=== PATIENT | male | born 1970 | race Caucasian/White ===

== ENCOUNTER 2017-10-18 05:15 | Inpatient (IN) | payer BC ==
[2017-10-18] MEDS ORDERED: Acetaminophen 500 MG Tab PO ONE ×2 (05:57→08:00)
[2017-10-18] MEDS ORDERED: Gabapentin 300 MG Cap PO ONE ×2 (05:57→08:00)
[2017-10-18] MEDS ORDERED: Celecoxib 200 MG Cap PO ONE ×2 (05:57→08:00)
[2017-10-18] MEDS ORDERED: Dextrose 5%-Lactated Ringers 1,000 ML IV SCH ×2 (05:58→08:15)
[2017-10-18] MEDS: Scopolamine 1.5 MG Transdermal Patch TOP ONE ×2 (06:21→13:16)
[2017-10-18] MEDS ORDERED: Ondansetron 4 MG/2 ML SDV ONE (07:08)
[2017-10-18] MEDS ORDERED: Succinylcholine 200 MG/10 ML MDV ONE (07:08)
[2017-10-18] MEDS ORDERED: Neostigmine Methylsulfate 1 MG/ML 5 ML Syringe ONE (07:08)
[2017-10-18] MEDS ORDERED: Dexamethasone 4 MG/ML SDV ONE (07:08)
[2017-10-18] MEDS ORDERED: Rocuronium 50 MG/5 ML Vial ONE (07:08)
[2017-10-18] MEDS ORDERED: Glycopyrrolate 0.2 MG/ML 5 ML MDV ONE (07:08)
[2017-10-18] MEDS ORDERED: Propofol 200 MG/20 ML SDV ONE (07:08)
[2017-10-18] MEDS: cefOXitin 2 GM in Sodium Chloride 0.9% 50 ML IV ONE ×2 (07:14→11:59)
[2017-10-18] MEDS ORDERED: Lactated Ringers 1,000 ML ONE (07:14)
[2017-10-18] MEDS ORDERED: Lidocaine 2% 100 MG/5 ML Syringe IVPUSH ONE (07:30)
[2017-10-18] MEDS ORDERED: Ropivacaine 60 ML, Dexamethasone 8 MG, EPINEPHrine 0.4 MG, Sodium Chloride 0.9% 17.6 ML NERVRT SCH ×4 (07:30)
[2017-10-18] MEDS ORDERED: Ketamine 500 MG/5 ML MDV IV SCH (07:30)
[2017-10-18] MEDS ORDERED: fentaNYL 250 MCG/5 ML SDV ONE (07:55)
[2017-10-18] MEDS: cefOXitin 2 GM Vial ONE ×2 (08:12→08:51)
[2017-10-18] MEDS ORDERED: hydrOXYzine HCl 100 MG/2 ML SDV IM ONE ×2 (09:19→13:47)
[2017-10-18] MEDS ORDERED: fentaNYL 100 MCG/2 ML SDV IVPUSH ONE (09:23)
[2017-10-18] MEDS ORDERED: Labetalol 20 MG/4 ML Syringe IVPUSH ONE (10:03)
[2017-10-18] MEDS ORDERED: hydrALAZINE 20 MG/ML SDV IVPUSH ONE (10:39)
[2017-10-18] MEDS: Lidocaine 0.4%/D5W 2 GM/500 ML BAG IV SCH (11:30)
[2017-10-18] MEDS ORDERED: Ondansetron 4 MG/2 ML SDV IVPUSH PRN (12:00)
[2017-10-18] MEDS ORDERED: Labetalol 20 MG/4 ML Syringe IVPUSH PRN (12:00)
[2017-10-18] MEDS ORDERED: 50% Dextrose in Water 50 ML Syringe IVPUSH PRN (12:00)
[2017-10-18] MEDS ORDERED: hydrOXYzine HCl 100 MG/2 ML SDV IM PRN (12:00)
[2017-10-18] MEDS ORDERED: Glucagon,Human Recombinant 1 MG Vial IM PRN (12:00)
[2017-10-18] MEDS ORDERED: diphenhydrAMINE 50 MG/ML SDV IVPUSH PRN (12:00)
[2017-10-18] MEDS ORDERED: Pantoprazole 40 MG Vial IVPUSH SCH (12:00)
[2017-10-18] MEDS: Acetaminophen Soln 650 MG/20.3 ML UD Cup PO SCH ×2 (12:03→17:59)
[2017-10-18] MEDS: Dextrose 5%-Lactated Ringers 1,000 ML IV SCH (13:05)
[2017-10-18] MEDS: cefOXitin 2 GM in Sodium Chloride 0.9% 50 ML IV SCH ×2 (13:32→18:07)
[2017-10-18] MEDS ORDERED: Nicotine 14 MG/24 Hr Patch TRDERM SCH (14:00)
[2017-10-18] MEDS: Gabapentin 250 MG/5 ML Solution ML 470 ML Bottle PO SCH ×2 (14:33→21:31)
[2017-10-18] MEDS ORDERED: MVI, Adult with Vitamin K 10 ML, Thiamine 100 MG, Chromium/Copper/Mang/Selen/Zn 1 ML in... IV SCH ×4 (16:00)
[2017-10-18] MEDS: Heparin Sodium 5,000 Units/ML Vial SUBCUT SCH (17:59)
[2017-10-18] MEDS: Insulin Aspart 100 Units/ML 3 ML Pen SUBCUT PRN ×2 (18:19→21:41)
[2017-10-19] MEDS: Lidocaine 0.4%/D5W 2 GM/500 ML BAG IV SCH (00:14)
[2017-10-19] MEDS: Heparin Sodium 5,000 Units/ML Vial SUBCUT SCH ×3 (00:14→16:12)
[2017-10-19] MEDS: Acetaminophen Soln 650 MG/20.3 ML UD Cup PO SCH ×3 (00:14→12:51)
[2017-10-19] MEDS: Dextrose 5%-Lactated Ringers 1,000 ML IV SCH (00:28)
[2017-10-19] MEDS: cefOXitin 2 GM in Sodium Chloride 0.9% 50 ML IV SCH ×2 (01:34→07:45)
[2017-10-19] MEDS ORDERED: Iohexol 647 MG/ML 50 ML SDV PO STA (03:27)
[2017-10-19] MEDS: Insulin Aspart 100 Units/ML 3 ML Pen SUBCUT PRN ×3 (04:24→16:26)
[2017-10-19] MEDS ORDERED: Ondansetron 4 MG Tab.DIS PO PRN (07:22)
[2017-10-19] MEDS: Lactated Ringers 1,000 ML IV SCH (07:48)
--- NOTE | 2017-10-19 08:21 | PN ---
DATE OF SERVICE: 10/19/2017 SUBJECTIVE: Zak is postop following Nacho-en-Y gastric bypass surgery. Blood sugars have been 325 and 320. He is due for his next one at 10 a.m. He has been up ambulating. Vital signs have been stable. Pain has been well managed. LABORATORIES: Labs this morning: White count was 21.6. Glucose 299. Hemoglobin A1c was 7.2. Phosphorus 2.1, magnesium 1.6, and potassium was normal at 4.5. BNP was 263. OBJECTIVE: GENERAL: Zak Ritchie is a 47-year-old male, alert and orientated. VITAL SIGNS: T, P, R 99.8, 96, 18. Blood pressure 129/81. Oral intake was 480 and urine output was 2875, PARISH put out 85 mL. HEENT: Negative. NECK: Supple. HEART: Regular rate and rhythm. LUNGS: Clear. ABDOMEN: Dressings dry and intact. PARISH drain intact. Abdominal binder is on. EXTREMITIES: Without peripheral edema. ASSESSMENT: Laparoscopic Nacho-en-Y gastric bypass surgery, liver biopsy, and small bowel resection for morbid obesity, hepatomegaly, poor mobility of small bowel secondary to fat- laden small bowel mesentery. Date of surgery is 10/18/2017, Javier Lopez MD. PLAN: 1. Step 2 gastric bypass diet without cereal. 2. Dressing off. May shower. 3. Magnesium 2 g IV q.6 hours. 4. Discontinue D5 LR. Change to lactated Ringer's 100 mL per hour. Neutra-Phos 250 mg p.o. q.i.d., Zofran 4 mg q.4 hours p.r.n. nausea, and hydrochlorothiazide 12.5 mg p.o. daily. We will wait for blood sugar results at 10 a.m. before starting any diabetic medication. He does have NovoLog to be given on a sliding scale. 5. Good pulmonary toilet. 6. We will evaluate p.r.n. 7. Communication order written for 3 med cups per hour to record at bedside. Reny Petersen PA-C /[id number]
[2017-10-19] MEDS: Gabapentin 250 MG/5 ML Solution ML 470 ML Bottle PO SCH (08:23)
[2017-10-19] MEDS: Celecoxib 200 MG Cap PO SCH (08:23)
[2017-10-19] MEDS: SCOPOLAMINE PATCH CHECK TOP SCH (08:23)
[2017-10-19] MEDS ORDERED: Hydrochlorothiazide 12.5 MG Cap PO SCH (09:00)
--- NOTE | 2017-10-19 09:40 | CR ---
UGI wo KUB CLINICAL HISTORY: Status post Nacho-en-Y gastric bypass FINDINGS: First image shows contrast in the distal esophagus gastric remanent and proximal small nakita l. There is a surgical drain in the left upper quadrant. The delayed image shows contrast in the mid small bowel. The no extravasation is identified. There is patchy atelectasis in the left lung base. Impression: Status post recent Nacho-en-Y gastric bypass with no evidence of obstruction or extravasat ion
[2017-10-19] MEDS: Phosphorus #1 250 MG Tab PO SCH ×3 (09:56→22:01)
[2017-10-19] MEDS: Magnesium Sulfate/Water 2 GM in Premix Bag 1 BAG IV SCH ×3 (10:37→22:00)
[2017-10-19] MEDS: Pantoprazole 40 MG Delayed-Release Granules 1 Packet PO SCH (12:51)
[2017-10-19] MEDS: Gabapentin 300 MG Cap PO SCH ×2 (14:02→22:01)
[2017-10-19] MEDS: MVI, Adult with Vitamin K 10 ML, Thiamine 100 MG, Chromium/Copper/Mang/Selen/Zn 1 ML in... IV SCH ×4 (15:35)
[2017-10-19] MEDS: Acetaminophen 160 MG Tab,Disintegrating PO SCH (17:52)
[2017-10-19] MEDS: Metoclopramide 10 MG/2 ML SDV IVPUSH PRN (19:34)
[2017-10-20] MEDS: Acetaminophen 160 MG Tab,Disintegrating PO SCH ×5 (00:27→23:47)
[2017-10-20] MEDS: Heparin Sodium 5,000 Units/ML Vial SUBCUT SCH ×4 (00:29→23:47)
[2017-10-20] MEDS: Lactated Ringers 1,000 ML IV SCH (01:51)
[2017-10-20] MEDS: Magnesium Sulfate/Water 2 GM in Premix Bag 1 BAG IV SCH ×4 (04:49→21:18)
[2017-10-20] MEDS: Insulin Aspart 100 Units/ML 3 ML Pen SUBCUT PRN (04:56)
[2017-10-20] MEDS: Metoclopramide 10 MG/2 ML SDV IVPUSH PRN (05:03)
[2017-10-20] MEDS: Phosphorus #1 250 MG Tab PO SCH ×4 (05:08→21:18)
[2017-10-20] MEDS ORDERED: Magnesium Hydroxide 400 MG/5 ML Susp 30 ML Cup PO PRN (07:57)
[2017-10-20] MEDS: Celecoxib 200 MG Cap PO SCH (08:10)
[2017-10-20] MEDS ORDERED: Cyanocobalamin (Vitamin B12) 1,000 MCG/ML SDV IM ONE (09:00)
[2017-10-20] MEDS ORDERED: Magnesium Hydroxide 400 MG/5 ML Susp 30 ML Cup PO ONE (09:00)
[2017-10-20] MEDS: Gabapentin 300 MG Cap PO SCH ×3 (09:34→20:21)
[2017-10-20] MEDS: SCOPOLAMINE PATCH CHECK TOP SCH (09:35)
[2017-10-20] MEDS: Pantoprazole 40 MG Delayed-Release Granules 1 Packet PO SCH (11:48)
[2017-10-20] MEDS: MVI, Adult with Vitamin K 10 ML, Thiamine 100 MG, Chromium/Copper/Mang/Selen/Zn 1 ML in... IV SCH ×4 (17:46)
[2017-10-21] MEDS: Magnesium Sulfate/Water 2 GM in Premix Bag 1 BAG IV SCH ×4 (03:46→21:33)
[2017-10-21] MEDS: Lactated Ringers 1,000 ML IV SCH (04:57)
[2017-10-21] MEDS: Acetaminophen 160 MG Tab,Disintegrating PO SCH ×4 (05:21→23:23)
[2017-10-21] MEDS: Phosphorus #1 250 MG Tab PO SCH (05:22)
[2017-10-21] MEDS ORDERED: Potassium Phosphates 15 MMOLE in Sodium Chloride 0.9% 250 ML IV ONE (09:00)
[2017-10-21] MEDS: Celecoxib 200 MG Cap PO SCH (09:03)
[2017-10-21] MEDS: Heparin Sodium 5,000 Units/ML Vial SUBCUT SCH ×3 (09:03→23:19)
[2017-10-21] MEDS: Gabapentin 300 MG Cap PO SCH ×3 (09:04→21:33)
[2017-10-21] MEDS: Metoclopramide 10 MG/2 ML SDV IVPUSH PRN (10:45)
[2017-10-21] MEDS: Potassium Phosphates 20 MMOLE in Sodium Chloride 0.9% 250 ML IV SCH ×3 (12:23→19:45)
[2017-10-21] MEDS: Pantoprazole 40 MG Delayed-Release Granules 1 Packet PO SCH (12:29)
[2017-10-21] MEDS: MVI, Adult with Vitamin K 10 ML, Thiamine 100 MG, Chromium/Copper/Mang/Selen/Zn 1 ML in... IV SCH ×4 (23:17)
[2017-10-22] MEDS: Magnesium Sulfate/Water 2 GM in Premix Bag 1 BAG IV SCH (03:03)
[2017-10-22] MEDS: Acetaminophen 160 MG Tab,Disintegrating PO SCH (05:28)
[2017-10-22] MEDS: Gabapentin 300 MG Cap PO SCH (08:15)
[2017-10-22] MEDS: Celecoxib 200 MG Cap PO SCH (08:15)
[2017-10-22] MEDS: Heparin Sodium 5,000 Units/ML Vial SUBCUT SCH (08:16)
--- NOTE | 2017-10-22 09:49 | PN ---
DATE OF SERVICE: 10/20/2017 The patient is running some temps in the 100.7 range, around 100 to 105. Otherwise, he looks fairly good. O2 saturations were a little bit low yesterday, and these were improved overnight with increased pulmonary toilet. His PARISH drains look clean. He perhaps had nausea overnight, but has now resolved. The abdominal discomfort seems to be resolving. He is beginning to pass some gas. We will need to keep him today and work on pulmonary toilet, give him some bowel stimulation. His blood sugars are coming down reasonably well, and we will not start any antidiabetic medication at this point. As long as he continues to improve, he will likely be discharged home tomorrow. Javier Lopez MD /[id number]
--- NOTE | 2017-10-22 10:22 | PN ---
DATE OF SERVICE: 10/21/2017 The patient has now been afebrile with stable vital signs. Oral intake was still a little bit marginal yesterday. I will keep him 1 more day to make sure that is established. The Neutra-Phos tablets were making him quite nauseated and uncomfortable. Given this, we will switch the phosphate over to K-Phos IV today and recheck some labs in the morning. Assuming he is able to maintain an adequate oral intake, we will have him likely be discharged home tomorrow. Javier Lopez MD /[id number]
--- NOTE | 2017-10-23 05:01 | DISCH ---
ADMISSION DIAGNOSES: Morbid obesity, BMI 37, elevated fasting glucose, essential hypertension, obstructive sleep apnea, gastroesophageal reflux disease, anxiety, dysthymia, vitamin D deficiency. DISCHARGE DIAGNOSES: 1. Laparoscopic Nacho-en-Y gastric bypass surgery, liver biopsy, and small bowel resection for morbid obesity, hepatomegaly, poor mobility of small bowel secondary to fat laden small bowel mesentery. Date of surgery 10/18/2017, Javier Lopez MD. 2. Postop nausea. 3. Hemoglobin A1c is 7.2, and hypo magnesium of 1.6. HISTORY: Zak Ritchie is a 47-year-old male with longstanding history of morbid obesity and increasingly comorbidities. After preoperative evaluation and discussion of possible risks and possible complications, he wished to proceed with surgical procedure. HOSPITAL COURSE: Zak had his surgery on 10/18/2017. He had no operative complications. On postop day #1, his blood sugar was elevated. He was treated appropriately with NovoLog and it decreased to normal. His magnesium was replaced. He did have some problems with nausea, thought to be secondary to liquid gabapentin and liquid Tylenol. This was changed. Then, he developed a low-grade temp of 100.4. Pulmonary status was worked on and along with his nausea which was treated with Zofran. On 10/22/2017, he was able to be discharged to home. PHYSICAL EXAMINATION: GENERAL: Zak is a 47-year-old male. He is alert and orientated. VITAL SIGNS: Height 5 feet 10 inches. Weight is 262. TPR is 97.4, 81, 18. Blood pressure 131/78. HEENT: Negative. NECK: Supple. HEART: Regular rate and rhythm. LUNGS: Clear. ABDOMEN: Incisions look good, 4 x 4 over PARISH drain site. Abdominal binder is on. EXTREMITIES: Without peripheral edema. DISPOSITION: Discharged to home. CONDITION: Stable and improving. FOLLOWUP APPOINTMENT: With Reny Petersen PA-C at [place], [place] 10/30/2017 at 9:15 a.m. NEW PRESCRIPTIONS: 1. Tylenol 650 mg oral q.4 hours chewable for 14 days. 2. Continue Nexium while taking the Celebrex. 3. Zofran ODT 4 mg q.4 hours p.r.n. nausea, 30. He is to take the Celebrex 200 mg daily for 2 weeks. 4. Hydrochlorothiazide 12.5 mg p.o. daily. DIET: After discharge drink 8 to 10 glasses of water a day. Other diet is step-2 with no cereal for 2 weeks. ACTIVITY: No lifting greater than 10 pounds for 2 weeks. DISCHARGE INSTRUCTION: Driving after discharge, do not drive for 1 week. Shower/bathing, may shower. Notify provider if any fever, increased pain, nausea, or vomiting. Keep site clean and dry. Wear abdominal binder for 2 weeks and as tolerated. SPECIAL INSTRUCTION: Use incentive spirometer 10 times every hour while awake for 1 week. Keep a journal of liquids and protein intake and bring to clinic appointments.
--- NOTE | 2017-10-25 15:14 | OR ---
DATE OF PROCEDURE: 10/18/2017 PREOPERATIVE DIAGNOSIS: Morbid obesity. POSTOPERATIVE DIAGNOSES: 1. Morbid obesity. 2. Marked hepatomegaly. 3. Poorly mobile small bowel secondary to the fat infiltration of small bowel mesentery. OPERATIVE PROCEDURES: 1. Laparoscopic Nacho-en-Y gastric bypass with long-limb gastroenterostomy (34532). 2. Rylan-Cut needle liver biopsy (75997). 3. Small bowel resection to facilitate mobility of jejunojejunostomy to allow adequate lack of tension at gastrojejunostomy ([id number]). ANESTHESIA: General. ASSISTANTS: Reny Petersen PA-C, and LORE Crawford3. INDICATION: This is a 47-year-old presenting with longstanding morbid obesity and increasingly significant comorbidities. After preoperative evaluation and discussion, he wished to proceed with a gastric bypass procedure. Potential risks of the procedure including bleeding, infection, leaks from various GI tract closures, problems with bowel obstruction over time, as well as the possibility of cardiopulmonary, septic, or hemorrhagic complications leading to were all discussed, and the patient wishes to proceed. DETAILS OF PROCEDURE: The patient was taken to the operating room and placed in a supine position. After general endotracheal anesthesia was induced, he was converted to a lithotomy position and an orogastric tube was placed, and the abdomen being prepped and draped. At 15 cm inferior and 5 cm left of xiphoid process, a transverse incision was made and the peritoneal cavity entered under direct vision with an Optiview trocar. The peritoneal cavity was inflated to 15 mmHg pressure with CO2, and laparoscope was reinserted. Bilateral subcostal transversus abdominis plane blocks were then placed with visualization of the needle in the transversus abdominis plane by direct visualization, and the standard solution was injected bilaterally. Following this, 5 additional trocars were placed across the upper and mid abdomen. General exploration was undertaken. The patient was noted to have marked hepatomegaly with liver volume being roughly 2 to 3 times normal and liver grossly fatty infiltrated. Rylan-Cut needle biopsy was obtained from the left lobe of the liver. Minimal bleeding from the biopsy sites was controlled with electrocautery. At this point, the omentum was divided in the midline up to the level of the transverse colon. The small bowel was then identified at the ligament of Treitz and traced out 200 cm distal to that point, where it was divided transversely with a KIM stapler. Small bowel was then traced out 150 cm further distally, where a [id number] enteroenterostomy was accomplished with internal firing of 60 mm KIM stapler. The common opening was closed transversely with the same stapler, angles anastomosed, and mesenteric defect were approximated with some 0 Ethibond stitch, along with fibrin sealant. During the course of the small bowel manipulation, the patient was noted to have extremely thickened small bowel mesentery, making the small bowel quite immobile. Prior to the anastomosis, roughly 12 cm of the small bowel and the biliopancreatic limb was therefore resected, which would allow considerably more mobility of the jejunojejunostomy, allowing a relatively tension-free anastomosis at the gastrojejunostomy later in the procedure. That small bowel specimen was obtained by means of KIM staplers and sent as a separate specimen for histologic evaluation. The liver was then retracted anteriorly. The patient was noted to have no significant diaphragmatic hernia. The gastrointestinal balloon catheter was inflated to 15 mL and pulled up snuggly against the EG junction. Gastric wall over the apex balloon was then marked with electrocautery and balloon catheter deflated and pulled up in the esophagus. The lesser omental tissue adjacent to the gastric cardia was incised, allowing dissection behind the stomach at that level. The patient had a fairly thick stomach, so we elected to switch out the right upper quadrant trocar to a 15-mm size, which allowed the initial 2 firings of the pouch formation to be done with black loads given the thickness of the stomach. The remainder of the pouch was formed with firings of the purple loads directed up toward the angle of His. Upon completion of the pouch, both staple lines were noted to be intact. The anvil of a 25-mm EEA stapler was then attached to the Dandridge sump type tube. The latter was brought down through the mouth and taken out through a small opening in the gastric pouch, allowing the anvil likewise to be placed into the gastric pouch. The divided end of the Nacho limb was then opened and the main body of the EEA stapler passed several centimeters into the small bowel, brought up the anvil and united with it, thus creating the gastrojejunostomy. Upon removal of the stapler, double donuts of mucosa were noted within it. Small bowel was closed off with a vascular staple line. Gastrojejunostomy was reinforced with some 3-0 Vicryl seromuscular stitch, along with fibrin sealant. A leak test was accomplished with injection of 120 mL of air in the gastric pouch while submerged with cefoxitin-containing saline solution. No leaks were identified. Two Boston-Diaz drains were then placed adjacent to the gastrojejunostomy and taken out through subcostal trocar sites. With no further problems were noted, the trocars were removed, and the peritoneal cavity was deflated. The incision was closed with some 4-0 Vicryl skin stitch, which was also used to affix the drains. No further problems were noted. The patient was taken to the recovery room in a satisfactory condition. Physician day care assistant, Reny Petersen, played an essential role in assisting in this case, helping to position the patient, retract structures as needed, as well as suturing and cutting sutures when indicated. Her presence improved patient safety and decreased the operative time. Javier Lopez MD /[id number]
== END 2017-10-22 09:28 | disposition home or self-care (01) | DRG 403 ==
LOC: JP.SDS 05:15 → JP.SDSSCHI 05:15 → EDSTATUS 07:30 → JP.2SS 09:20
PROVIDERS: ADMIT Surgery; ATTEND Surgery
PROC: 0D164ZA Bypass Stomach to Jejunum, Percutaneous Endoscopic Approach (ICD-10-PCS; principal; 2017-10-18)
PROC: 3E0T3BZ Introduction of Anesthetic Agent into Peripheral Nerves and Plexi, Percutaneous Approach (ICD-10-PCS; 2017-10-18)
PROC: 0FB24ZX Excision of Left Lobe Liver, Percutaneous Endoscopic Approach, Diagnostic (ICD-10-PCS; 2017-10-18)
PROC: 0DB94ZX Excision of Duodenum, Percutaneous Endoscopic Approach, Diagnostic (ICD-10-PCS; 2017-10-18)
DX: E66.01 Morbid (severe) obesity due to excess calories (principal); Z68.39 Body mass index [BMI] 39.0-39.9, adult; R16.0 Hepatomegaly, not elsewhere classified; I10 Essential (primary) hypertension; G47.33 Obstructive sleep apnea (adult) (pediatric); Z99.89 Dependence on other enabling machines and devices; E55.9 Vitamin D deficiency, unspecified; F41.9 Anxiety disorder, unspecified; F34.1 Dysthymic disorder; E83.42 Hypomagnesemia; R11.0 Nausea; R73.01 Impaired fasting glucose; K59.8 Other specified functional intestinal disorders; K76.0 Fatty (change of) liver, not elsewhere classified
CPT/HCPCS: 36415; 74240; 74240-26; 80048; 80053; 82962; 83036; 83735; 83880; 84100; 85027; 86850; 86900; 86901; 88307; 88313; 94762; A9270-GY; C9113; J0171; J0330; J0694; J1100; J1644; J2001; J2405; J2704; J2710; J2765; J2795; J3010; J3410; J3411; J3420; J3475; J3490; J7030; J7040; J7042; J7050; J7120; Q9967

== ENCOUNTER 2017-11-24 08:56 | Emergency (ER) | payer BC ==
[2017-11-24] MEDS ORDERED: Lactated Ringers 1,000 ML IV ONE (09:22)
[2017-11-24] MEDS ORDERED: Metoclopramide 10 MG/2 ML SDV IVPUSH ONE (09:23)
--- NOTE | 2017-11-24 09:34 | EDM.PDOC ---
ED HPI GENERAL MEDICAL PROBLEM - General Chief Complaint: Gastrointestinal Problem Stated Complaint: ESTRELLA PT/CANT KEEP ANYTHING DOWN Time Seen by Provider: 11/24/17 09:20 Source of Information: Reports: Patient, Family, Old Records History Limitations: Reports: No Limitations - History of Present Illness INITIAL COMMENTS - FREE TEXT/NARRATIVE: 47 yo male s/p gastric bypass presents 6 weeks out from his surgery by Dr. Lopez with recurrent vomiting. Is not even able to keep enough fluids down to stay hydrated. No blood in emesis or stool. No fever. Normal BM's. No abdominal distention. Is worried about a stricture. Went to a hospital near where he lives yesterday for IV fluids. Not getting relief from Zofran. Onset: Gradual Onset Date: 11/18/17 Duration: Day(s):, Getting Worse Quality: Reports: Other (No pain except with swallowing in his esophagus) Severity: Mild Improves with: Reports: Other (not eating) Worsens with: Reports: Eating Context: Reports: Other (Nacho-N-Y gastric bypass here 6 weeks ago) Associated Symptoms: Reports: Nausea/Vomiting. 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: Reports: Other (see below) (none, last Zofran yesterday with no benefit.) - Related Data Allergies Allergy/AdvReac Type Severity Reaction Status Date / Time No Known Allergies Allergy Verified 10/16/17 08:03 Home Meds: Home Meds Hydrochlorothiazide 12.5 mg PO DAILY 10/16/17 [History] Acetaminophen [Tylenol] 650 mg PO Q4H PRN #1200 cup 10/22/17 [Rx] Celecoxib [CeleBREX] 200 mg PO DAILY@0800 #0 cap 10/22/17 [Rx] Esomeprazole Magnesium [Nexium] 20 mg PO DAILY #0 10/22/17 [Rx] Ondansetron [Zofran ODT] 4 mg PO Q4H PRN #30 tab.dis 10/22/17 [Rx] Prochlorperazine [Compazine] 25 mg RC Q6HR PRN #14 supp.rect 11/24/17 [Rx] Past Medical History Cardiovascular History: Reports: Hypertension Respiratory History: Reports: Sleep Apnea Gastrointestinal History: Reports: GERD Genitourinary History: Reports: None Endocrine/Metabolic History: Reports: Obesity/BMI 30+ - Infectious Disease History Infectious Disease History: Reports: Chicken Pox - Past Surgical History Cardiovascular Surgical History: Reports: None Respiratory Surgical History: Reports: None GI Surgical History: Reports: Bariatric Procedure, Cholecystectomy Other GI Surgeries/Procedures: RNY Male Surgical History: Reports: Vasectomy Endocrine Surgical History: Reports: None Social & Family History - Family History Cardiac: Reports: [place], Stent : Reports: Renal Disease/Insufficiency Musculoskeletal: Reports: Arthritis Endocrine/Metabolic: Reports: Diabetes, type II Oncologic: Reports: Lung, Skin - Tobacco Use Smoking Status *Q: Never Smoker - Caffeine Use Caffeine Use: Reports: None - Recreational Drug Use Recreational Drug Use: No ED ROS GENERAL - Review of Systems Review Of Systems: See Below Constitutional: Reports: No Symptoms HEENT: Reports: No Symptoms Respiratory: Reports: No Symptoms Cardiovascular: Reports: No Symptoms Endocrine: Reports: No Symptoms GI/Abdominal: Reports: Abdominal Pain (Some esophageal pressure after eating.), Constipation (mild, controlled with stool softeners), Nausea, Vomiting. Denies : Anorexia, Black Stool, Bloody Stool, Diarrhea : Reports: No Symptoms Musculoskeletal: Reports: No Symptoms Skin: Reports: No Symptoms Neurological: Reports: No Symptoms Psychiatric: Reports: No Symptoms ED EXAM, GI/ABD - Physical Exam Exam: See Below Exam Limited By: No Limitations General Appearance: Alert, WD/WN, No Apparent Distress Eyes: Bilateral: Normal Appearance Ears: Normal External Exam, Normal Canal, Hearing Grossly Normal, Normal TMs Nose: Normal Inspection, Normal Mucosa, No Blood Throat/Mouth: Normal Inspection, Normal Lips, Normal Oropharynx, Normal Voice, No Airway Compromise Head: Atraumatic, Normocephalic Neck: Normal Inspection, Supple, Non-Tender Respiratory/Chest: No Respiratory Distress, Lungs Clear, Normal Breath Sounds, No Accessory Muscle Use Cardiovascular: Regular Rate, Rhythm GI/Abdominal Exam: Normal Bowel Sounds, Soft, Non-Tender, No Distention Back Exam: Normal Inspection. No: CVA Tenderness (R), CVA Tenderness (L) Extremities: Normal Inspection, Normal Range of Motion, Non-Tender, No Pedal Edema Neurological: Alert, Oriented, CN II-XII Intact, Normal Cognition, No Motor/ Sensory Deficits Psychiatric: Normal Affect, Normal Mood Skin Exam: Warm, Dry, Intact, Normal Color, No Rash Lymphatic: No Adenopathy Course - Vital Signs Text/Narrative:: Feeling better after Reglan IV, able to keep fluids down. Last Recorded V/S: Last Vital Signs Temp 35.2 C 11/24/17 09:54 Pulse 76 11/24/17 11:18 Resp 16 11/24/17 11:18 BP 106/66 11/24/17 11:18 Pulse Ox 100 11/24/17 11:18 - Orders/Labs/Meds Orders: Active Orders 24 hr Category Date Time Status Abdomen Pelvis w Cont [CT] Stat Exams 11/24/17 09:39 Taken Iopamidol [Isovue-300 (61%)] Med 11/24/17 10:30 Active 150 ml IV . DIRECTED Sodium Chloride 0.9% [Saline Flush] Med 11/24/17 10:21 Active 10 ml FLUSH ONETIME PRN Medication Orders Iopamidol (Isovue-300 (61%)) 150 ml IV . DIRECTED SHAYY Last Admin: 11/24/17 11:57 Dose: 150 ml Sodium Chloride (Saline Flush) 10 ml FLUSH ONETIME PRN PRN Reason: PER RADIOLOGY PROTOCOL Last Admin: 11/24/17 11:57 Dose: 10 ml Labs: Laboratory Tests 11/24/17 11/24/17 11/24/17 Range/Units 09:23 10:20 10:20 WBC 7.0 (4.5-11.0) K/uL RBC 5.21 (4.30-5.90) M/uL Hgb 14.0 (12.0-15.0) g/dL Hct 43.1 (40.0-54.0) % MCV 83 (80-98) fL MCH 27 (27-31) pg MCHC 33 (32-36) % Plt Count 301 (150-400) K/uL Sodium 148 (140-148) mmol/L Potassium 3.5 L (3.6-5.2) mmol/L Chloride 108 (100-108) mmol/L Carbon Dioxide 24 (21-32) mmol/L Anion Gap 19.5 H (5.0-14.0) mmol/L BUN 7 (7-18) mg/dL Creatinine 0.9 (0.8-1.3) mg/dL Est Cr Clr Drug Dosing 102.52 mL/min Estimated GFR (MDRD) > 60 (>60) Glucose 115 H (74-106) mg/dL Lactic Acid 1.3 (0.4-2.0) mmol/L Calcium 8.7 (8.5-10.1) mg/dL Meds: Medications Generic Name Dose Route Start Last Admin Trade Name Freq PRN Reason Stop Dose Admin Iopamidol 150 ml 11/24/17 10:30 11/24/17 11:57 Isovue-300 (61%) IV 150 ml . DIRECTED SHAYY Administration Sodium Chloride 10 ml 11/24/17 10:21 11/24/17 11:57 Saline Flush FLUSH 10 ml ONETIME PRN Administration PER RADIOLOGY PROTOCOL Discontinued Medications Generic Name Dose Route Start Last Admin Trade Name Freq PRN Reason Stop Dose Admin Lactated Ringer's 1,000 mls @ 1,000 mls/hr 11/24/17 09:22 11/24/17 09:39 Ringers, Lactated IV 11/24/17 10:21 1,000 mls/hr BOLUS ONE Administration Sodium Chloride 85 mls @ 3 mls/sec 11/24/17 10:21 11/24/17 11:57 Normal Saline IV 11/24/17 10:22 3.5 mls/sec ONETIME ONE Administration Iohexol 20 ml 11/24/17 10:06 11/24/17 10:12 Omnipaque PO 11/24/17 10:07 20 ml ONETIME ONE Administration Metoclopramide HCl 10 mg 11/24/17 09:23 11/24/17 09:39 Reglan IVPUSH 11/24/17 09:24 10 mg ONETIME ONE Administration - Radiology Interpretation Free Text/Narrative:: CT abd/pelvis with oral and IV contrast-changes consistent with gastric bypass only. CT Results Date: 11/24/17 CT Results Time: 12:30 Departure - Departure Time of Disposition: 12:44 Disposition: Home, Self-Care 01 Condition: Good Clinical Impression: Vomiting Qualifiers: Vomiting type: unspecified Vomiting Intractability: non-intractable Nausea presence: with nausea Qualified Code(s): R11.2 - Nausea with vomiting, unspecified - Discharge Information Prescriptions: Prochlorperazine [Compazine] 25 mg RC Q6HR PRN #14 supp.rect PRN Reason: Nausea Referrals: PCP,None [Primary Care Provider] - Forms: ED Department Discharge - My Orders Last 24 Hours: My Active Orders 11/24/17 09:39 Abdomen Pelvis w Cont [CT] Stat 11/24/17 10:21 Sodium Chloride 0.9% [Saline Flush] 10 ml FLUSH ONETIME PRN 11/24/17 10:30 Iopamidol [Isovue-300 (61%)] 150 ml IV . DIRECTED - Assessment/Plan Last 24 Hours: My Active Orders 11/24/17 09:39 Abdomen Pelvis w Cont [CT] Stat 11/24/17 10:21 Sodium Chloride 0.9% [Saline Flush] 10 ml FLUSH ONETIME PRN 11/24/17 10:30 Iopamidol [Isovue-300 (61%)] 150 ml IV . DIRECTED
[2017-11-24] MEDS ORDERED: Iohexol 300 MG/ML 30 ML Bottle PO ONE (10:06)
[2017-11-24] MEDS ORDERED: Sodium Chloride 0.9% 10 ML Syringe FLUSH PRN (10:21)
[2017-11-24] MEDS ORDERED: Iopamidol 612 MG/ML 150 ML Bottle IV SCH (10:30)
== END 2017-11-24 12:54 | disposition home or self-care (01) ==
LOC: JP.ED 08:56
DX: R11.2 Nausea with vomiting, unspecified (principal); I10 Essential (primary) hypertension; K21.9 Gastro-esophageal reflux disease without esophagitis; E66.9 Obesity, unspecified; Z98.84 Bariatric surgery status; Z90.49 Acquired absence of other specified parts of digestive tract; Z79.899 Other long term (current) drug therapy; Z68.32 Body mass index [BMI] 32.0-32.9, adult
CPT/HCPCS: 36415; 74177; 80048; 83605; 85027; 96361; 96374; 99284; J2765; J7030; J7050; J7120; Q9965

== ENCOUNTER 2017-11-28 09:28 | Day surgery (SDC) | payer BC ==
[2017-11-28] MEDS ORDERED: fentaNYL 100 MCG/2 ML SDV ONE (10:00)
[2017-11-28] MEDS ORDERED: Midazolam 1 MG/ML 2 ML SDV ONE (10:00)
[2017-11-28] MEDS ORDERED: Propofol 200 MG/20 ML SDV ONE (10:00)
[2017-11-28] MEDS ORDERED: Lactated Ringers 1,000 ML IV SCH (10:30)
[2017-11-28] MEDS ORDERED: Lactated Ringers 1,000 ML ONE (10:57)
[2017-11-28] MEDS ORDERED: Cyanocobalamin (Vitamin B12) 1,000 MCG/ML SDV IM ONE (11:00)
[2017-11-28] MEDS ORDERED: Glycopyrrolate 0.2 MG/ML 2 ML SDV IVPUSH ONE (11:00)
[2017-11-28] MEDS ORDERED: MVI, Adult with Vitamin K 10 ML, Thiamine 100 MG, Chromium/Copper/Mang/Selen/Zn 1 ML in... IV ONE ×4 (12:00)
[2017-11-28] MEDS ORDERED: Ondansetron 4 MG/2 ML SDV IVPUSH ONE (13:04)
[2017-11-28] MEDS ORDERED: LORazepam 2 MG/ML SDV IVPUSH ONE (14:35)
[2017-11-28] MEDS ORDERED: Hyoscyamine 0.125 MG Tab.SL SL ONE (15:14)
--- NOTE | 2017-12-02 13:45 | OR ---
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 OPERATIVE PROCEDURE: Upper gastrointestinal endoscopy with dilation of gastrojejunostomy (51963). ANESTHESIA: IV sedation. INDICATIONS FOR PROCEDURE: This is a 47-year-old status post Nacho-en-Y gastric bypass on 10/18/2017, presenting with symptoms of stricturing at his gastrojejunostomy. Plan is to proceed with upper GI endoscopy with dilation as indicated. The potential risks including bleeding and perforation were discussed, and the patient wishes to proceed. DETAILS OF PROCEDURE: The patient was taken to the operating room and then placed in a left lateral decubitus position. IV sedation was administered, after which the upper GI endoscope was passed orally through the length of the esophagus and into the area of the gastric pouch. There was some mild granular fluid containing some undigested food present in the distal esophagus and pouch. There was a very tight stricture at the gastrojejunostomy measuring around 3 mm. A Bard gastrointestinal balloon catheter was centered across the anastomosis and inflated to 36-Syriac size. This was held in position for 1 minute, after which the balloon catheter was deflated and withdrawn. The scope could easily be passed through the anastomosis. No complications were noted. The procedure was then concluded with no evident complications. Javier Lopez MD /[id number]
== END 2017-11-28 15:45 | disposition home or self-care (01) ==
LOC: JP.SDS 09:28
PROVIDERS: ATTEND Surgery
DX: K95.89 Other complications of other bariatric procedure (principal); K21.9 Gastro-esophageal reflux disease without esophagitis
CPT/HCPCS: 43245; A9270; J2060; J2250; J2405; J2704; J3010; J3411; J3420; J7120; J3490

== ENCOUNTER 2017-12-15 05:19 | Day surgery (SDC) | payer BC ==
[2017-12-15] MEDS ORDERED: VITAMIN K IV ONE ×4 (05:30)
[2017-12-15] MEDS ORDERED: ZINC IV ONE ×4 (05:30)
[2017-12-15] MEDS ORDERED: Glycopyrrolate 0.2 MG/ML 2 ML SDV IV ONE (05:30)
[2017-12-15] MEDS ORDERED: MANG IV ONE ×4 (05:30)
[2017-12-15] MEDS ORDERED: [UNRECOGNIZED DRUG - OTHER] IV ONE ×4 (05:30)
[2017-12-15] MEDS ORDERED: THIAMINE IV ONE ×4 (05:30)
[2017-12-15] MEDS ORDERED: MVI IV ONE ×4 (05:30)
[2017-12-15] MEDS ORDERED: CHROMIUM IV ONE ×4 (05:30)
[2017-12-15] MEDS ORDERED: Lactated Ringers 1,000 ML IV ONE (05:30)
[2017-12-15] MEDS ORDERED: COPPER IV ONE ×4 (05:30)
[2017-12-15] MEDS ORDERED: MVI, Adult with Vitamin K 10 ML, Thiamine 100 MG, Chromium/Copper/Mang/Selen/Zn 1 ML in... IV ONE ×4 (07:30)
[2017-12-15] MEDS ORDERED: Midazolam 1 MG/ML 2 ML SDV ONE (08:07)
[2017-12-15] MEDS ORDERED: fentaNYL 100 MCG/2 ML SDV ONE (08:07)
[2017-12-15] MEDS ORDERED: Propofol 200 MG/20 ML SDV ONE (08:07)
[2017-12-15] MEDS ORDERED: Ondansetron 4 MG/2 ML SDV ONE (09:05)
[2017-12-15] MEDS: Lidocaine 2% 60 ML, Alum Hydrox/Mag Hydrox/Simeth 360 ML PO PRN ×4 (12:13→13:12)
--- NOTE | 2017-12-24 12:32 | OR ---
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 OPERATIVE PROCEDURE: Upper GI endoscopy with dilation gastrojejunostomy (40343). ANESTHESIA: IV sedation. 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 Plan is to proceed with upper GI endoscopy with dilation as indicated. Potential risks including bleeding and perforation were discussed with the patient and he wishes to proceed. DETAILS OF PROCEDURE: The patient was taken to the operating room and placed in a left lateral decubitus position. IV sedation was administered, after which the upper GI endoscope was passed orally through the length of the esophagus and into the gastric pouch. The patient was noted to have a fairly tight stricture at the gastrojejunostomy. Using fluoroscopic surveillance, a Bard gastrointestinal catheter was centered across the anastomosis and inflated with a 36-Hungarian size. This was held in position for 1 minute after which the balloon catheter was deflated and withdrawn. The scope could easily then be passed through the anastomosis. No complications were noted and the procedure concluded. The patient was taken to the recovery room in satisfactory condition. Later in the recovery phase on the 2nd floor, the patient was complaining of some upper abdominal pain, this was treated with a mixture of Maalox and viscous lidocaine. With that and after sleeping for a period, the patient felt good and was discharged home. Javier Lopez MD /[id number]
== END 2017-12-15 13:50 | disposition home or self-care (01) ==
LOC: JP.SDS 05:19
PROVIDERS: ATTEND Surgery
DX: K91.89 Other postprocedural complications and disorders of digestive system (principal)
CPT/HCPCS: 43245; A9270; J2250; J2405; J2704; J3010; J3411; J7120

== ENCOUNTER 2017-12-21 01:09 | Inpatient (IN) | payer BC ==
[2017-12-21] MEDS ORDERED: Potassium Chloride 20 MEQ in Premix Bag 1 BAG IV ONE (01:50)
[2017-12-21] MEDS ORDERED: NS + KCl 20mEq/L 1,000 ML IV SCH (02:00)
--- NOTE | 2017-12-21 02:00 | EDM.PDOC ---
ED HPI GENERAL MEDICAL PROBLEM - General Chief Complaint: Abdominal Pain Stated Complaint: MEDICAL VIA F-M ABULANCE Time Seen by Provider: 12/21/17 01:40 Source of Information: Reports: Patient, Family, Old Records History Limitations: Reports: No Limitations - History of Present Illness INITIAL COMMENTS - FREE TEXT/NARRATIVE: 47 yo male here with R sided to mid abdominal pain. Says it feels like there is an air bubble. Had a low grade fever earlier today. Has felt this way since a recent dilatation procedure here. Is from [place] and was seen there earlier this evening in their ER and referred here after a CT scan showed free air suggesting a perforation. Has not eaten much today. K of 3.1 was identified. Other labs normal. Pain is a 5/10 currently. Onset: Gradual Onset Date: 12/16/17 Duration: Day(s):, Getting Worse Location: Reports: Abdomen Quality: Reports: Dull, Other (fullness) Severity: Moderate Improves with: Reports: Medication Worsens with: Reports: Other (? 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 Right Lower Abdomen Pain Score (Numeric/FACES): 5 - Related Data Allergies Allergy/AdvReac Type Severity Reaction Status Date / Time No Known Allergies Allergy Verified 11/28/17 10:11 Home Meds: Home Meds Ondansetron [Zofran ODT] 4 mg PO Q4H PRN #30 tab.dis 10/22/17 [Rx] Cyanocobalamin (Vitamin B-12) [Vitamin B-12] 1,000 mcg SL DAILY 11/27/17 [ History] Multivitamin [Multivitamins] 1 tab PO BID 11/27/17 [History] Hyoscyamine [Hyomax-SL] 0.125 mg SL Q4H PRN 12/15/17 [History] Past Medical History Cardiovascular History: Reports: Hypertension Respiratory History: Reports: Sleep Apnea Other Respiratory History: sleep apnea resolved since RNY Gastrointestinal History: Reports: GERD Genitourinary History: Reports: None Endocrine/Metabolic History: Reports: Obesity/BMI 30+ - Infectious Disease History Infectious Disease History: Reports: Chicken Pox - Past Surgical History HEENT Surgical History: Reports: DARCIEIK Cardiovascular Surgical History: Reports: None Respiratory Surgical History: Reports: None GI Surgical History: Reports: Bariatric Procedure, Cholecystectomy Other GI Surgeries/Procedures: RNY Male Surgical History: Reports: Vasectomy Endocrine Surgical History: Reports: None Social & Family History - Family History Family Medical History: Noncontributory Cardiac: Reports: [place], Stent : Reports: Renal Disease/Insufficiency Musculoskeletal: Reports: Arthritis Endocrine/Metabolic: Reports: Diabetes, type II Oncologic: Reports: Lung, Skin - Tobacco Use Smoking Status *Q: Never Smoker Second Hand Smoke Exposure: No - Caffeine Use Caffeine Use: Reports: None - Recreational Drug Use Recreational Drug Use: No ED ROS GENERAL - Review of Systems Review Of Systems: See Below Constitutional: Reports: Fever, Fatigue HEENT: Reports: No Symptoms Respiratory: Reports: No Symptoms Cardiovascular: Reports: No Symptoms Endocrine: Reports: No Symptoms GI/Abdominal: Reports: Abdominal Pain : Reports: No Symptoms Musculoskeletal: Reports: No Symptoms Skin: Reports: No Symptoms Neurological: Reports: No Symptoms ED EXAM, GI/ABD - Physical Exam Exam: See Below Exam Limited By: No Limitations General Appearance: Alert, WD/WN, No Apparent Distress Eyes: Bilateral: Normal Appearance Ears: Normal External Exam, Normal Canal, Hearing Grossly Normal Nose: Normal Inspection, Normal Mucosa, No Blood Throat/Mouth: Normal Lips, Normal Voice, No Airway Compromise Head: Atraumatic, Normocephalic Neck: Normal Inspection Respiratory/Chest: No Respiratory Distress, Lungs Clear, Normal Breath Sounds, No Accessory Muscle Use Cardiovascular: Regular Rate, Rhythm, No Edema GI/Abdominal Exam: Soft, Tender (mild tenderness) Extremities: Normal Inspection, Normal Range of Motion, Non-Tender, No Pedal Edema Neurological: Alert, Oriented, CN II-XII Intact, Normal Cognition Psychiatric: Normal Affect, Normal Mood Skin Exam: Warm, Dry, Intact, Normal Color, No Rash Lymphatic: No Adenopathy Course - Vital Signs Text/Narrative:: Dr. Lopez aware of patient's arrival. Surgery planned for 5 am. Last Recorded V/S: Last Vital Signs Temp 36.5 C 12/21/17 01:17 Pulse 97 12/21/17 01:17 Resp 16 12/21/17 01:17 BP 130/77 12/21/17 01:17 Pulse Ox 93 L 12/21/17 01:17 - Orders/Labs/Meds Orders: Active Orders 24 hr Category Date Time Status Potassium Chloride [KCL 20 MEQ in Water 100 ML] 20 meq Med 12/21/17 01:50 Ordered Premix Bag 1 bag IV ONETIME Sodium Chloride 0.9% with KCl 20 mEq @ 125 mL/Hr (1000 Med 12/21/17 02:00 Ordered mL) NS + KCl 20mEq/L [Normal Saline with 20 mEq KCl] 1,000 ml IV ASDIRECTED Medication Orders Potassium Chloride 20 meq/ (Premix) 100 mls @ 50 mls/hr IV ONETIME ONE Stop: 12/21/17 03:49 Potassium Chloride/Sodium Chloride (Normal Saline With 20 Meq Kcl) 1,000 mls @ 125 mls/hr IV ASDIRECTED PENDING SALE TO [facility] Meds: Medications Generic Name Dose Route Start Last Admin Trade Name Freq PRN Reason Stop Dose Admin Potassium Chloride 20 meq/ 100 mls @ 50 mls/hr 12/21/17 01:50 Premix IV 12/21/17 03:49 ONETIME ONE Potassium Chloride/Sodium Chloride 1,000 mls @ 125 mls/hr 12/21/17 02:00 Normal Saline With 20 Meq Kcl IV ASDIRECTED SHAYY Departure - Departure Time of Disposition: 02:10 Disposition: Admitted As Inpatient 64 Condition: Fair Clinical Impression: Free intraperitoneal air, Hypokalemia - Discharge Information Referrals: PCP,None [Primary Care Provider] - - My Orders Last 24 Hours: My Active Orders 12/21/17 01:50 Potassium Chloride [KCL 20 MEQ in Water 100 ML] 20 meq Premix Bag 1 bag IV ONETIME 12/21/17 02:00 Sodium Chloride 0.9% with KCl 20 mEq @ 125 mL/Hr (1000 mL) NS + KCl 20mEq/L [ Normal Saline with 20 mEq KCl] 1,000 ml IV ASDIRECTED - Assessment/Plan Last 24 Hours: My Active Orders 12/21/17 01:50 Potassium Chloride [KCL 20 MEQ in Water 100 ML] 20 meq Premix Bag 1 bag IV ONETIME 12/21/17 02:00 Sodium Chloride 0.9% with KCl 20 mEq @ 125 mL/Hr (1000 mL) NS + KCl 20mEq/L [ Normal Saline with 20 mEq KCl] 1,000 ml IV ASDIRECTED
[2017-12-21] MEDS ORDERED: Dextrose 5%-Lactated Ringers 1,000 ML IV SCH (02:30)
[2017-12-21] MEDS ORDERED: HYDROmorphone/Normal Saline 15 MG/30 ML PCA IV SCH (02:30)
[2017-12-21] MEDS ORDERED: Succinylcholine 200 MG/10 ML MDV ONE (04:00)
[2017-12-21] MEDS ORDERED: Ondansetron 4 MG/2 ML SDV ONE (04:00)
[2017-12-21] MEDS ORDERED: Rocuronium 50 MG/5 ML Vial ONE (04:00)
[2017-12-21] MEDS ORDERED: Glycopyrrolate 0.2 MG/ML 5 ML MDV ONE (04:00)
[2017-12-21] MEDS ORDERED: Neostigmine Methylsulfate 1 MG/ML 5 ML Syringe ONE (04:00)
[2017-12-21] MEDS ORDERED: Dexamethasone 4 MG/ML SDV ONE (04:00)
[2017-12-21] MEDS ORDERED: Propofol 200 MG/20 ML SDV ONE (04:00)
[2017-12-21] MEDS ORDERED: Sodium Chloride 0.9% 10 ML ONE (05:34)
[2017-12-21] MEDS ORDERED: Meropenem 500 MG SDV ONE (05:34)
[2017-12-21] MEDS ORDERED: fentaNYL 250 MCG/5 ML SDV ONE (05:37)
[2017-12-21] MEDS ORDERED: Lactated Ringers 1,000 ML ONE (06:02)
[2017-12-21] MEDS ORDERED: HYDROmorphone/Normal Saline 15 MG/30 ML PCA IV PRN (07:49)
[2017-12-21] MEDS ORDERED: Naloxone 0.4 MG/ML SDV IV PRN (07:49)
[2017-12-21] MEDS ORDERED: diphenhydrAMINE 50 MG/ML SDV IVPUSH PRN (08:00)
[2017-12-21] MEDS ORDERED: Metoclopramide 10 MG/2 ML SDV IVPUSH PRN (08:00)
[2017-12-21] MEDS ORDERED: Labetalol 20 MG/4 ML Syringe IVPUSH PRN (08:00)
[2017-12-21] MEDS ORDERED: Ondansetron 4 MG/2 ML SDV IVPUSH PRN (08:00)
[2017-12-21] MEDS ORDERED: hydrOXYzine HCl 100 MG/2 ML SDV IM PRN (08:00)
[2017-12-21] MEDS: cefOXitin 2 GM in Sodium Chloride 0.9% 50 ML IV SCH ×3 (08:29→20:38)
[2017-12-21] MEDS: Gabapentin 250 MG/5 ML Solution ML 470 ML Bottle PO SCH ×3 (08:29→20:38)
[2017-12-21] MEDS: SCOPOLAMINE PATCH CHECK TOP SCH (08:30)
[2017-12-21] MEDS ORDERED: Acetaminophen Soln 650 MG/20.3 ML UD Cup PO SCH (10:00)
[2017-12-21] MEDS ORDERED: Pantoprazole 40 MG Vial IVPUSH SCH (11:00)
[2017-12-21] MEDS: Acetaminophen 160 MG Tab,Disintegrating PO SCH ×3 (11:41→23:18)
[2017-12-21] MEDS ORDERED: Scopolamine 1.5 MG Transdermal Patch TOP SCH (12:30)
[2017-12-21] MEDS: Dextrose 5%-Lactated Ringers 1,000 ML IV SCH (13:24)
[2017-12-21] MEDS: Lactated Ringers 500 ML IV SCH ×2 (15:00→17:35)
[2017-12-21] MEDS: Heparin Sodium 5,000 Units/ML Vial SUBCUT SCH (15:46)
[2017-12-21] MEDS ORDERED: MVI, Adult with Vitamin K 10 ML, Thiamine 100 MG, Chromium/Copper/Mang/Selen/Zn 1 ML in... IV SCH ×4 (16:00)
[2017-12-21] MEDS ORDERED: Lactated Ringers 500 ML IV SCH (17:30)
[2017-12-21] MEDS ORDERED: Lactated Ringers 500 ML IV ONE (23:30)
[2017-12-22] MEDS: cefOXitin 2 GM in Sodium Chloride 0.9% 50 ML IV SCH ×3 (01:29→14:24)
[2017-12-22] MEDS: Dextrose 5%-Lactated Ringers 1,000 ML IV SCH ×2 (01:32→09:07)
[2017-12-22] MEDS: Heparin Sodium 5,000 Units/ML Vial SUBCUT SCH ×2 (04:15→16:39)
[2017-12-22] MEDS ORDERED: Iohexol 647 MG/ML 50 ML SDV PO PRN (04:19)
[2017-12-22] MEDS: Acetaminophen 160 MG Tab,Disintegrating PO SCH ×4 (05:24→23:34)
[2017-12-22] MEDS ORDERED: Lactated Ringers 500 ML IV ONE (06:30)
[2017-12-22] MEDS ORDERED: Furosemide 20 MG/2 ML VIAL IVPUSH ONE (08:00)
[2017-12-22] MEDS: Gabapentin 250 MG/5 ML Solution ML 470 ML Bottle PO SCH ×3 (08:17→20:00)
[2017-12-22] MEDS: SCOPOLAMINE PATCH CHECK TOP SCH (08:18)
[2017-12-22] MEDS: Pantoprazole 40 MG Delayed-Release Granules 1 Packet PO SCH (11:07)
--- NOTE | 2017-12-22 15:55 | PCM.CONS ---
H&P History of Present Illness - General Date of Service: 12/22/17 Admit Problem/Dx: Admission Diagnosis/Problem Admission Diagnosis/Problem Abdominal pain Source of Information: Patient, Provider History Limitations: Reports: No Limitations - History of Present Illness Initial Comments - Free Text/Narative: Zak was admitted yesterday after being sent from [place] where a CT scan had revealed free intraperitoneal air. He had initially presented with right lateral abdominal pain. He had exploratory surgery yesterday but no obvious leak was found. He has been stable since surgery other than some mild volume overload this morning. I was asked to see him this afternoon by Dr. Lopez regarding right-sided abdominal pain and fever. He reports 6 out of 10 achy right lateral abdominal pain. The pain does not radiate. It is improving with pain medication administration. The pain was worse after walking and he did have some liquids recently as well. This is similar pain to what brought him to the emergency room late yesterday. He feels mildly short of breath and does cough with deep inspiration. He has a general feeling of unwell. No vomiting. Right Lower Abdomen Pain Score (Numeric/FACES): 4 - Related Data Allergies/Adverse Reactions: Allergies Allergy/AdvReac Type Severity Reaction Status Date / Time No Known Allergies Allergy Verified 11/28/17 10:11 Home Medications: Home Meds Ondansetron [Zofran ODT] 4 mg PO Q4H PRN #30 tab.dis 10/22/17 [Rx] Cyanocobalamin (Vitamin B-12) [Vitamin B-12] 1,000 mcg SL DAILY 11/27/17 [ History] Multivitamin [Multivitamins] 1 tab PO BID 11/27/17 [History] Hyoscyamine [Hyomax-SL] 0.125 mg SL Q4H PRN 12/15/17 [History] Past Medical History Cardiovascular History: Reports: Hypertension Respiratory History: Reports: Sleep Apnea Other Respiratory History: sleep apnea resolved since RNY Gastrointestinal History: Reports: GERD Genitourinary History: Reports: None Endocrine/Metabolic History: Reports: Obesity/BMI 30+ - Infectious Disease History Infectious Disease History: Reports: Chicken Pox - Past Surgical History HEENT Surgical History: Reports: LASIK Cardiovascular Surgical History: Reports: None Respiratory Surgical History: Reports: None GI Surgical History: Reports: Bariatric Procedure, Cholecystectomy Other GI Surgeries/Procedures: RNY Male Surgical History: Reports: Vasectomy Endocrine Surgical History: Reports: None Social & Family History - Family History Family Medical History: Noncontributory Cardiac: Reports: [place], Stent : Reports: Renal Disease/Insufficiency Musculoskeletal: Reports: Arthritis Endocrine/Metabolic: Reports: Diabetes, type II Oncologic: Reports: Lung, Skin - Tobacco Use Smoking Status *Q: Never Smoker Second Hand Smoke Exposure: No - Caffeine Use Caffeine Use: Reports: None - Alcohol Use Alcohol Use History: No - Recreational Drug Use Recreational Drug Use: No H&P Review of Systems - Review of Systems: Review Of Systems: See Below Free Text/Narrative: A complete 12 point review of systems was obtained. Pertinent positives and negatives are noted in the history of present illness. All other systems were reviewed and were negative except as noted. Exam - Exam Exam: See Below - Vital Signs Vital Signs: Last Vital Signs Temp 38.2 C H 12/22/17 15:00 Pulse 99 12/22/17 15:00 Resp 18 12/22/17 15:00 BP 140/85 12/22/17 15:00 Pulse Ox 88 L 12/22/17 15:00 Weight: 100.199 kg - Exam Quality Assessment: Supplemental Oxygen General: Alert, Oriented, Cooperative. No: Mild Distress HEENT: Conjunctiva Clear. No: Mucosa Moist & Struthers (dry), Scleral Icterus Neck: Supple, Trachea Midline Lungs: Clear to Auscultation, Normal Respiratory Effort. No: Crackles, Wheezing Cardiovascular: Regular Rhythm, Tachycardia. No: Systolic Murmur GI/Abdominal Exam: Soft, No Distention, Tender (moderate right lateral abdomen ) , Abnormal Bowel Sounds (hypoactive, especially on the right ) Extremities: No Pedal Edema. No: Increased Warmth Skin: Warm, Dry Neuro Extensive - Mental Status: Alert, Oriented x3 Neuro Extensive - Motor, Sensory, Reflexes: CN II-XII Intact. No: Dysarthria, Abnormal Motor, Tremor Psychiatric: Alert, Normal Affect Physical Exam Comments:: Surgical dressing over midline abdominal wound is dry and intact. PARISH drains with small quantities serosanguineous fluid - Patient Data Tolu Results Last 24 hrs: Microbiology 12/21/17 06:31 Anaerobic Culture - Preliminary Abdominal Fluid - Aspirate NO GROWTH AFTER 1 DAY 12/21/17 06:31 Gram Stain - Final Abdominal Fluid - Aspirate Wound Culture - Preliminary NO GROWTH AFTER 1 DAY Consult PN Assessment/Plan POD#: 1 Procedures: Procedures ASSAY OF LACTIC ACID (11/24/17) BLOOD TYPING SEROLOGIC ABO (07/26/17) BLOOD TYPING SEROLOGIC RH(D) (07/26/17) COMPLETE CBC AUTOMATED (11/24/17) CT ABD & PELV W/CONTRAST (11/24/17) EGD DILATE STRICTURE (11/28/17) EMERGENCY DEPT VISIT (11/24/17) HYDRATE IV INFUSION ADD-ON (11/24/17) METABOLIC PANEL TOTAL CA (11/24/17) RBC ANTIBODY SCREEN (07/26/17) ROUTINE VENIPUNCTURE (11/24/17) THER/PROPH/DIAG INJ IV PUSH (11/24/17) Problem List Initiated/Reviewed/Updated: Yes My Orders Last 24 Hours: My Active Orders 12/22/17 15:39 CBC WITH AUTO DIFF [HEME] Urgent COMPREHENSIVE METABOLIC PN,CMP [CHEM] Urgent LACTIC ACID [CHEM] Urgent Plan: ASSESSMENT AND PLAN - Right mid abdominal pain - similar to pain present at time of presentation to the emergency room in [place]. Pain had improved yesterday after surgery but is worsening again. Associated with development of tachycardia and low-grade fever. No guarding at present time. He had consumed liquids prior to onset of pain. Need to assess for sepsis with elevation of heart rate and temperature. -CBC, CMP and lactic acid -Pain control -Consider CT scan Exam findings and situation discussed with Dr. Lopez. Will relay abnormal labs and CAT scan results if indicated. Julián Arellano MD Requesting Provider: Dr Lopez Date Consult Requested: 12/22/17 Reason for Consult: abdominal pain, fever Patient History Reviewed: Yes Admission H&P Reviewed: No (not available) Notified Requestor: Yes Time Spent (in minutes): 45
[2017-12-22] MEDS ORDERED: MVI, Adult with Vitamin K 10 ML, Thiamine 100 MG, Chromium/Copper/Mang/Selen/Zn 1 ML in... IV SCH ×4 (16:00)
[2017-12-22] MEDS ORDERED: Acetaminophen 1,000 MG in Premix Bag 1 BAG IV ONE (16:46)
[2017-12-22] MEDS ORDERED: Lidocaine 1% 2 ML ONE (17:09)
[2017-12-22] MEDS ORDERED: Potassium Chloride 100 ML ONE ×2 (17:10→19:50)
[2017-12-22] MEDS: Piperacillin/Tazobactam 3.375 GM in Sodium Chloride 0.9% 50 ML IV SCH ×2 (17:33→22:44)
[2017-12-22] MEDS: Potassium Chloride 20 MEQ, Lidocaine 1% 2 ML in Sodium Chloride 0.9% 100 ML IV SCH ×2 (18:11→20:30)
[2017-12-23] MEDS: Heparin Sodium 5,000 Units/ML Vial SUBCUT SCH ×2 (04:15→16:44)
[2017-12-23] MEDS: Piperacillin/Tazobactam 3.375 GM in Sodium Chloride 0.9% 50 ML IV SCH (04:16)
[2017-12-23] MEDS: Dextrose 5%-Lactated Ringers 1,000 ML IV SCH (04:25)
[2017-12-23] MEDS: Acetaminophen 160 MG Tab,Disintegrating PO SCH ×4 (06:16→23:18)
[2017-12-23] MEDS ORDERED: Iopamidol 612 MG/ML 150 ML Bottle IV PRN (07:11)
[2017-12-23] MEDS ORDERED: Sodium Chloride 0.9% 10 ML Syringe FLUSH PRN (07:11)
[2017-12-23] MEDS ORDERED: Iohexol 300 MG/ML 30 ML Bottle PO ONE (08:00)
[2017-12-23] MEDS: Magnesium Sulfate/Water 2 GM in Premix Bag 1 BAG IV SCH ×3 (08:54→20:42)
[2017-12-23] MEDS: SCOPOLAMINE PATCH CHECK TOP SCH (08:58)
[2017-12-23] MEDS ORDERED: Cyanocobalamin (Vitamin B12) 1,000 MCG/ML SDV IM ONE (09:00)
[2017-12-23] MEDS: Lactated Ringers 1,000 ML IV SCH (09:15)
[2017-12-23] MEDS ORDERED: Tamsulosin 0.4 MG Cap.ER PO ONE (10:00)
--- NOTE | 2017-12-23 10:13 | PCM.CONSN ---
- General Info Date of Service: 12/23/17 Functional Status: Reports: Pain Controlled, Tolerating Diet - Review of Systems General: Reports: Fever Gastrointestinal: Reports: Abdominal Pain Systems Review Comment:: overnight patient had some difficulty with intermittent temperature elevations as well as persistent but somewhat better right-sided abdominal pain. No nausea. Urine output has been adequate. He does continue to require supplemental oxygen. Repeat CT scan this morning did not show acute intra- abdominal findings. It did redemonstrate mild to moderate right-sided hydronephrosis and probable small stone at the UVJ. - Patient Data Vitals - Most Recent: Last Vital Signs Temp 38.7 C H 12/23/17 07:00 Pulse 113 H 12/23/17 07:00 Resp 16 12/23/17 07:00 BP 122/69 12/23/17 07:00 Pulse Ox 86 L 12/23/17 07:00 Weight - Most Recent: 100.199 kg I&O - Last 24 Hours: Intake & Output 12/22/17 12/23/17 12/23/17 22:59 06:59 14:59 Intake Total 3120 1708 Output Total 575 995 Balance 2545 713 Lab Results Last 24 Hours: Laboratory Results - last 24 hr 12/22/17 12/22/17 12/22/17 Range/Units 15:54 15:54 15:54 WBC 10.5 (4.5-11.0) K/uL RBC 4.77 (4.30-5.90) M/uL Hgb 13.0 (12.0-15.0) g/dL Hct 40.3 (40.0-54.0) % MCV 85 (80-98) fL MCH 27 (27-31) pg MCHC 32 (32-36) % Plt Count 273 (150-400) K/uL Neut % (Auto) 73 H (36-66) % Lymph % (Auto) 12 L (24-44) % [place] % (Auto) 14 H (2-6) % Eos % (Auto) 1 L (2-4) % Baso % (Auto) 0 (0-1) % Sodium 140 (140-148) mmol/L Potassium 3.4 L (3.6-5.2) mmol/L Chloride 103 (100-108) mmol/L Carbon Dioxide 33 H (21-32) mmol/L Anion Gap 7.4 (5.0-14.0) mmol/L BUN 8 (7-18) mg/dL Creatinine 1.4 H D (0.8-1.3) mg/dL Est Cr Clr Drug Dosing 66.06 mL/min Estimated GFR (MDRD) 54 L (>60) Glucose 136 H (74-106) mg/dL Lactic Acid 2.4 H (0.4-2.0) mmol/L Calcium 8.1 L (8.5-10.1) mg/dL Phosphorus (2.5-4.9) mg/dL Magnesium (1.8-2.4) mg/dL Total Bilirubin 0.7 (0.2-1.0) mg/dL AST 27 (15-37) U/L ALT 30 (12-78) U/L Alkaline Phosphatase 60 (46-116) U/L NT-Pro-B Natriuret Pep (5-125) pg/mL Total Protein 6.0 L (6.4-8.2) g/dL Albumin 2.5 L (3.4-5.0) g/dL Globulin 3.5 (2.3-3.5) g/dL Albumin/Globulin Ratio 0.7 L (1.2-2.2) 12/22/17 12/23/17 12/23/17 Range/Units 21:57 04:00 04:00 WBC (4.5-11.0) K/uL RBC (4.30-5.90) M/uL Hgb (12.0-15.0) g/dL Hct (40.0-54.0) % MCV (80-98) fL MCH (27-31) pg MCHC (32-36) % Plt Count (150-400) K/uL Neut % (Auto) (36-66) % Lymph % (Auto) (24-44) % [place] % (Auto) (2-6) % Eos % (Auto) (2-4) % Baso % (Auto) (0-1) % Sodium (140-148) mmol/L Potassium (3.6-5.2) mmol/L Chloride (100-108) mmol/L Carbon Dioxide (21-32) mmol/L Anion Gap (5.0-14.0) mmol/L BUN (7-18) mg/dL Creatinine (0.8-1.3) mg/dL Est Cr Clr Drug Dosing mL/min Estimated GFR (MDRD) (>60) Glucose (74-106) mg/dL Lactic Acid 1.9 2.8 H (0.4-2.0) mmol/L Calcium (8.5-10.1) mg/dL Phosphorus (2.5-4.9) mg/dL Magnesium (1.8-2.4) mg/dL Total Bilirubin (0.2-1.0) mg/dL AST (15-37) U/L ALT (12-78) U/L Alkaline Phosphatase (46-116) U/L NT-Pro-B Natriuret Pep 267 H (5-125) pg/mL Total Protein (6.4-8.2) g/dL Albumin (3.4-5.0) g/dL Globulin (2.3-3.5) g/dL Albumin/Globulin Ratio (1.2-2.2) 12/23/17 12/23/17 Range/Units 04:48 04:48 WBC 11.7 H (4.5-11.0) K/uL RBC 4.81 (4.30-5.90) M/uL Hgb 13.2 (12.0-15.0) g/dL Hct 40.5 (40.0-54.0) % MCV 84 (80-98) fL MCH 27 (27-31) pg MCHC 33 (32-36) % Plt Count 277 (150-400) K/uL Neut % (Auto) (36-66) % Lymph % (Auto) (24-44) % [place] % (Auto) (2-6) % Eos % (Auto) (2-4) % Baso % (Auto) (0-1) % Sodium 140 (140-148) mmol/L Potassium 3.3 L (3.6-5.2) mmol/L Chloride 100 (100-108) mmol/L Carbon Dioxide 32 (21-32) mmol/L Anion Gap 11.3 (5.0-14.0) mmol/L BUN 7 (7-18) mg/dL Creatinine 1.3 (0.8-1.3) mg/dL Est Cr Clr Drug Dosing 71.15 mL/min Estimated GFR (MDRD) 59 L (>60) Glucose 135 H (74-106) mg/dL Lactic Acid (0.4-2.0) mmol/L Calcium 7.8 L (8.5-10.1) mg/dL Phosphorus 1.4 L (2.5-4.9) mg/dL Magnesium 1.6 L D (1.8-2.4) mg/dL Total Bilirubin 1.3 H D (0.2-1.0) mg/dL AST 48 H D (15-37) U/L ALT 52 (12-78) U/L Alkaline Phosphatase 74 (46-116) U/L NT-Pro-B Natriuret Pep (5-125) pg/mL Total Protein 5.8 L (6.4-8.2) g/dL Albumin 2.4 L (3.4-5.0) g/dL Globulin 3.4 (2.3-3.5) g/dL Albumin/Globulin Ratio 0.7 L (1.2-2.2) Tolu Results Last 24 Hours: Microbiology 12/21/17 06:31 Anaerobic Culture - Preliminary Abdominal Fluid - Aspirate NO GROWTH AFTER 2 DAYS 12/21/17 06:31 Gram Stain - Final Abdominal Fluid - Aspirate Wound Culture - Preliminary NO GROWTH AFTER 2 DAYS Med Orders - Current: Current Medications Acetaminophen (Tylenol Jr. Meltaways) 640 mg PO Q6H [facility] Last Admin: 12/23/17 06:16 Dose: 640 mg Diphenhydramine HCl (Benadryl) 25 - 50 mg IVPUSH Q4H PRN PRN Reason: ITCHING Furosemide (Lasix) 20 mg IVPUSH ONETIME ONE Stop: 12/23/17 10:12 Gabapentin (Neurontin) 300 mg PO TID SHAYY Last Admin: 12/22/17 20:00 Dose: 300 mg Heparin Sodium (Porcine) (Heparin Sodium) 5,000 units SUBCUT Q12H [facility] Last Admin: 12/23/17 04:15 Dose: 5,000 units Hydromorphone HCl (Dilaudid Director Clinical Data 15 Mg In Ns 30 Ml) 0 mg IV ASDIRECTED PRN; Protocol PRN Reason: [employer] PAIN CONTROL Hydroxyzine HCl (Vistaril) 75 - 100 mg IM Q4H PRN PRN Reason: pain Last Admin: 12/21/17 08:06 Dose: 100 mg Multivitamins/Minerals 10 ml/Thiamine HCl 100 mg/ Chromium/Copper/Manganese/ Seleni/Zn 1 ml/ Dextrose/Lactated Ringer's 1,012 mls @ 100 mls/hr IV DAILY@ 1600 [facility] Last Admin: 12/22/17 16:39 Dose: 100 mls/hr Piperacillin/Tazobactam/ (Dextrose 3.375 gm/ Premix) 50 mls @ 100 mls/hr IV Q6HR [facility] Magnesium Sulfate 2 gm/ Premix 50 mls @ 25 mls/hr IV Q6H [facility] Last Admin: 12/23/17 08:54 Dose: 25 mls/hr Potassium Chloride 20 meq/Lidocaine HCl 2 ml/ Sodium Chloride 112 mls @ 56 mls/ hr IV Q2H [facility] Stop: 12/23/17 15:59 Lactated Ringer's (Ringers, Lactated) 1,000 mls @ 125 mls/hr IV ASDIRECTED [facility] Last Admin: 12/23/17 09:15 Dose: 125 mls/hr Metoclopramide HCl (Reglan) 10 mg IVPUSH Q6H PRN PRN Reason: NAUSEA NOT CONTROL BY ZOFRAN Naloxone HCl (Narcan) 0.1 mg IV ASDIRECTED PRN PRN Reason: decreased respiratory rate Ondansetron HCl (Zofran) 4 mg IVPUSH Q4H PRN PRN Reason: Nausea/Vomiting Pantoprazole Sodium (Protonix Granules) 40 mg PO Q24H [facility] Last Admin: 12/22/17 11:07 Dose: 40 mg Scopolamine (Transderm-Scop) 1.5 mg TOP Q72H [facility] Stop: 12/23/17 12:31 Last Admin: 12/21/17 13:24 Dose: 1.5 mg Discontinued Medications Acetaminophen (Tylenol) 650 mg PO Q6H [facility] Last Admin: 12/21/17 11:31 Dose: Not Given Cyanocobalamin (Vitamin B12) 1,000 mcg IM ONETIME ONE Stop: 12/23/17 09:01 Dexamethasone (Dexamethasone) 4 mg .ROUTE .STK-MED ONE Stop: 12/21/17 04:01 Fentanyl (Sublimaze) Confirm Administered Dose 250 mcg .ROUTE .STK-MED ONE Stop: 12/21/17 05:38 Fentanyl Citrate (Fentanyl) Confirm Administered Dose 500 mcg .ROUTE .STK-MED ONE Stop: 12/21/17 02:23 Furosemide (Lasix) 20 mg IVPUSH ONETIME ONE Stop: 12/22/17 08:01 Last Admin: 12/22/17 08:17 Dose: 20 mg Glycopyrrolate (Robinul) 0.6 mg .ROUTE .STK-MED ONE Stop: 12/21/17 04:01 Hydromorphone HCl (Dilaudid Director Clinical Data 15 Mg In Ns 30 Ml) 15 mg IV ASDIRECTED SHAYY; Protocol Last Admin: 12/21/17 02:53 Dose: 15 mg Potassium Chloride 20 meq/ (Premix) 100 mls @ 50 mls/hr IV ONETIME ONE Stop: 12/21/17 03:49 Last Admin: 12/21/17 02:26 Dose: 50 mls/hr Potassium Chloride/Sodium Chloride (Normal Saline With 20 Meq Kcl) 1,000 mls @ 125 mls/hr IV ASDIRECTED SHAYY Dextrose/Lactated Ringer's (Dextrose 5%-Lactated Ringers) 1,000 mls @ 125 mls/ hr IV ASDIRECTED SHAYY Last Infusion: 12/21/17 12:08 Dose: Infused Sodium Chloride (Normal Saline) Confirm Administered Dose 10 mls @ as directed .ROUTE .K-MED ONE Stop: 12/21/17 05:35 Lactated Ringer's (Ringers, Lactated) Confirm Administered Dose 1,000 mls @ as directed .ROUTE .STK-MED ONE Stop: 12/21/17 06:03 Dextrose/Lactated Ringer's (Dextrose 5%-Lactated Ringers) 1,000 mls @ 175 mls/ hr IV ASDIRECTED [facility]AY[facility] Last Admin: 12/22/17 01:32 Dose: 175 mls/hr Multivitamins/Minerals 10 ml/Thiamine HCl 100 mg/ Chromium/Copper/Manganese/ Seleni/Zn 1 ml/ Dextrose/Lactated Ringer's 1,012 mls @ 174.826 mls/hr IV DAILY@ 1600 [facility] Last Admin: 12/21/17 17:35 Dose: 174.826 mls/hr Cefoxitin Sodium 2 gm/ Sodium (Chloride) 50 mls @ 100 mls/hr IV Q6H [facility] Last Admin: 12/22/17 14:24 Dose: 100 mls/hr Lactated Ringer's (Ringers, Lactated) 500 mls @ 500 mls/hr IV BOLUS SHAYY Last Admin: 12/21/17 17:35 Dose: 500 mls/hr Lactated Ringer's (Ringers, Lactated) 500 mls @ 500 mls/hr IV STAT SHAYY Lactated Ringer's (Ringers, Lactated) 500 mls @ 500 mls/hr IV ONETIME ONE Stop: 12/22/17 00:29 Last Admin: 12/21/17 23:54 Dose: 500 mls/hr Lactated Ringer's (Ringers, Lactated) 500 mls @ 500 mls/hr IV ONETIME ONE Stop: 12/22/17 07:29 Last Admin: 12/22/17 06:35 Dose: 500 mls/hr Dextrose/Lactated Ringer's (Dextrose 5%-Lactated Ringers) 1,000 mls @ 100 mls/ hr IV ASDIRECTED [facility] Last Admin: 12/23/17 04:25 Dose: 100 mls/hr Piperacillin Sod/Tazobactam (Sod 3.375 gm/ Sodium Chloride) 50 mls @ 100 mls/ hr IV Q6H [facility] Last Admin: 12/23/17 04:16 Dose: 100 mls/hr Potassium Chloride 20 meq/Lidocaine HCl 2 ml/ Sodium Chloride 112 mls @ 50 mls/ hr IV Q2H [facility] Stop: 12/22/17 20:59 Last Admin: 12/22/17 20:30 Dose: 50 mls/hr Acetaminophen 1,000 mg/ Premix 100 mls @ 400 mls/hr IV NOW ONE Stop: 12/22/17 17:00 Last Admin: 12/22/17 17:15 Dose: 400 mls/hr Lidocaine HCl (Xylocaine-Mpf 1%) Confirm Administered Dose 2 mls @ as directed .ROUTE .STK-MED ONE Stop: 12/22/17 17:10 Last Admin: 12/22/17 17:32 Dose: Not Given Potassium Chloride (Kcl 20 Meq In Water 100 Ml) Confirm Administered Dose 100 mls @ as directed .ROUTE .STK-MED ONE Stop: 12/22/17 17:11 Last Admin: 12/22/17 17:32 Dose: Not Given Potassium Chloride (Kcl 20 Meq In Water 100 Ml) Confirm Administered Dose 100 mls @ as directed .ROUTE .STK-MED ONE Stop: 12/22/17 19:51 Last Admin: 12/22/17 20:31 Dose: Not Given Sodium Chloride (Normal Saline) 85 mls @ 3.5 mls/sec IV ASDIRECTED SHAYY Stop: 12/23/17 08:00 Iohexol (Omnipaque-300) 50 ml PO ASDIRECTED PRN PRN Reason: RADIOLOGY EXAM Last Admin: 12/22/17 04:31 Dose: 50 ml Iohexol (Omnipaque) 10 ml PO ONETIME ONE Stop: 12/23/17 08:01 Last Admin: 12/23/17 07:56 Dose: 10 ml Iopamidol (Isovue-300 (61%)) 140 ml IV . DIRECTED PRN PRN Reason: RADIOLOGY EXAM Stop: 12/23/17 08:00 Last Admin: 12/23/17 08:06 Dose: 140 ml Labetalol HCl (Normodyne) 5 - 15 mg IVPUSH Q1H PRN PRN Reason: SBP over 160 OR DBP over 95 Lidocaine HCl (Xylocaine-Mpf 1%) 2 ml INJECT ONETIME ONE Stop: 12/21/17 02:08 Last Admin: 12/21/17 02:26 Dose: 2 ml Meropenem (Merrem) Confirm Administered Dose 500 mg .ROUTE .STK-MED ONE Stop: 12/21/17 05:35 Miscellaneous Information (Remove Patch) 1 ea TRDERM ONETIME ONE Stop: 12/23/17 10:01 Neostigmine Methylsulfate (Neostigmine) 3 mg .ROUTE .STK-MED ONE Stop: 12/21/17 04:01 Scopolamine Patch (Check) 1 each TOP DAILY [facility] Stop: 12/23/17 09:01 Last Admin: 12/23/17 08:58 Dose: Not Given Ondansetron HCl (Zofran) 4 mg .ROUTE .STK-MED ONE Stop: 12/21/17 04:01 Pantoprazole Sodium (Protonix Iv) 40 mg IVPUSH Q24H [facility] Last Admin: 12/21/17 11:33 Dose: 40 mg Propofol (Diprivan 20 Ml) 200 mg .ROUTE .STK-MED ONE Stop: 12/21/17 04:01 Rocuronium [place] (Zemuron) 40 mg .ROUTE .STK-MED ONE Stop: 12/21/17 04:01 Sodium Chloride (Saline Flush) 10 ml FLUSH ONETIME PRN PRN Reason: per radiology protocol Stop: 12/23/17 08:00 Last Admin: 12/23/17 08:06 Dose: 10 ml Succinylcholine Chloride (Quelicin) 100 mg .ROUTE .STK-MED ONE Stop: 12/21/17 04:01 Tamsulosin HCl (Flomax) 0.4 mg PO ONETIME ONE Stop: 12/23/17 10:01 - Exam Quality Assessment: Supplemental Oxygen General: Alert, Oriented, Cooperative, No Acute Distress Neck: Supple Lungs: Normal Respiratory Effort, Crackles (both bases) Cardiovascular: Regular Rhythm, Tachycardia GI/Abdominal Exam: Soft, No Distention, Tender (mild right lateral abdomen ) Extremities: No Pedal Edema Skin: Warm, Dry Psy/Mental Status: Alert, Normal Affect Consult PN Assessment/Plan POD#: 2 Procedures: Procedures ASSAY OF LACTIC ACID (11/24/17) BLOOD TYPING SEROLOGIC ABO (07/26/17) BLOOD TYPING SEROLOGIC RH(D) (07/26/17) COMPLETE CBC AUTOMATED (11/24/17) CT ABD & PELV W/CONTRAST (11/24/17) EGD DILATE STRICTURE (11/28/17) EMERGENCY DEPT VISIT (11/24/17) HYDRATE IV INFUSION ADD-ON (11/24/17) METABOLIC PANEL TOTAL CA (11/24/17) RBC ANTIBODY SCREEN (07/26/17) ROUTINE VENIPUNCTURE (11/24/17) THER/PROPH/DIAG INJ IV PUSH (11/24/17) Problem List Initiated/Reviewed/Updated: Yes My Orders Last 24 Hours: My Active Orders 12/23/17 09:15 Lactated Ringers [Ringers, Lactated] 1,000 ml IV ASDIRECTED 12/23/17 10:00 Piperacillin/Tazobactam/Dext [Zosyn in Dextrose Iso-Osmotic 3.375 GM] 3.375 gm Premix Bag 1 bag IV Q6HR 12/23/17 10:11 Furosemide [Lasix] 20 mg IVPUSH ONETIME ONE Plan: ASSESSMENT AND PLAN - Right mid abdominal pain - similar to pain present at time of presentation to the emergency room in [place]. Pain a little better today but persists. Repeat CT scan this morning did not show acute intra-abdominal findings. Probable small right-sided kidney stone at the UVJ noted. Mild to moderate hydronephrosis noted. Kidney stone likely the cause for pain. sepsis continues to smolder and he will need ongoing IV fluids. He does have some evidence for volume overload and we will need to diuresis in the setting of providing IV fluids. -tamsulosin -Pain control -IV fluids to help propel the stone into the bladder -Furosemide help with mild volume overload -continue current antibiotics with Pip/Tazo Julián Arellano MD
[2017-12-23] MEDS: Piperacillin/Tazobactam/Dext 3.375 GM in Premix Bag 1 BAG IV SCH ×3 (10:15→21:37)
[2017-12-23] MEDS: Potassium Chloride 20 MEQ, Lidocaine 1% 2 ML in Sodium Chloride 0.9% 100 ML IV SCH ×3 (10:15→14:42)
[2017-12-23] MEDS: Gabapentin 250 MG/5 ML Solution ML 470 ML Bottle PO SCH ×3 (10:16→20:42)
[2017-12-23] MEDS: Pantoprazole 40 MG Delayed-Release Granules 1 Packet PO SCH (10:17)
[2017-12-23] MEDS ORDERED: Furosemide 20 MG/2 ML VIAL IVPUSH ONE (10:45)
[2017-12-23] MEDS: Ketorolac 30 MG/ML SDV IVPUSH PRN (15:53)
[2017-12-23] MEDS: Nystatin Susp 100,000 Unit/ML 5 ML UD Cup PO SCH ×2 (16:41→22:09)
[2017-12-23] MEDS ORDERED: Sodium Chloride 0.65% Nasal Spray 45 ML Bottle NAS PRN (17:18)
[2017-12-23] MEDS: MVI, Adult with Vitamin K 10 ML, Thiamine 100 MG, Chromium/Copper/Mang/Selen/Zn 1 ML in... IV SCH ×4 (17:33)
[2017-12-23] MEDS ORDERED: Acetaminophen 1,000 MG in Premix Bag 1 BAG IV ONE (18:00)
[2017-12-24] MEDS: Magnesium Sulfate/Water 2 GM in Premix Bag 1 BAG IV SCH ×4 (01:05→20:34)
[2017-12-24] MEDS: Lactated Ringers 1,000 ML IV SCH (03:10)
[2017-12-24] MEDS: Piperacillin/Tazobactam/Dext 3.375 GM in Premix Bag 1 BAG IV SCH ×4 (03:22→23:00)
[2017-12-24] MEDS: Heparin Sodium 5,000 Units/ML Vial SUBCUT SCH ×2 (03:22→16:59)
[2017-12-24] MEDS: Acetaminophen 160 MG Tab,Disintegrating PO SCH ×3 (05:36→17:05)
[2017-12-24] MEDS: Nystatin Susp 100,000 Unit/ML 5 ML UD Cup PO SCH ×4 (05:58→22:28)
[2017-12-24] MEDS: Gabapentin 250 MG/5 ML Solution ML 470 ML Bottle PO SCH ×3 (08:35→20:34)
--- NOTE | 2017-12-24 09:12 | CR ---
Limited upper GI The patient is status post Nacho-en-Y gastric bypass. There are left upper quadrant drains in place. T here is no extravasation of contrast. The gastric pouch empties readily into a nondilated Nacho limb. No complications are evident. There are few scattered air-fluid levels within the small bowel suggest jakub of a mild ileus. Impression: 1. Status post Nacho-en-Y gastric bypass without evidence for complication.
--- NOTE | 2017-12-24 09:38 | PCM.CONSN ---
- General Info Date of Service: 12/24/17 Subjective Update: This patient has unfortunately had recurrent temperature elevations yesterday and during the night. CT scan of the abdomen pelvis was obtained yesterday and showed evidence of a right ureteral stone with hydronephrosis. Flank pain that he experienced has improved and the suspicion is that the stone has now passed. No other obvious source of infection has been identified to this point. White blood cell count was mildly elevated yesterday and has increased to 16,000 today. - Review of Systems General: Reports: Fever, Weakness, Fatigue, Chills HEENT: Denies: Ear Pain, Headaches, Sinus Congestion Pulmonary: Reports: Cough. Denies: Shortness of Breath, Sputum, Hemoptysis, Wheezing Cardiovascular: Reports: No Symptoms Gastrointestinal: Reports: Abdominal Pain. Denies: Difficulty Swallowing, Hematochezia, Melena, Nausea, Vomiting Genitourinary: Reports: No Symptoms Musculoskeletal: Reports: No Symptoms Skin: Reports: No Symptoms - Patient Data Vitals - Most Recent: Last Vital Signs Temp 99.4 F 12/24/17 08:00 Pulse 111 H 12/24/17 08:00 Resp 20 12/24/17 08:00 BP 112/59 L 12/24/17 08:00 Pulse Ox 96 12/24/17 08:00 Weight - Most Recent: 220 lb 14.416 oz I&O - Last 24 Hours: Intake & Output 12/23/17 12/24/17 12/24/17 22:59 06:59 14:59 Intake Total 2076 1606 360 Output Total 650 490 Balance 1426 1116 360 Lab Results Last 24 Hours: Laboratory Results - last 24 hr 12/23/17 12/24/17 12/24/17 Range/Units 16:00 04:10 04:10 WBC 16.2 H (4.5-11.0) K/uL RBC 4.53 (4.30-5.90) M/uL Hgb 12.5 (12.0-15.0) g/dL Hct 37.5 L (40.0-54.0) % MCV 83 (80-98) fL MCH 28 (27-31) pg MCHC 33 (32-36) % Plt Count 290 (150-400) K/uL Sodium 140 (140-148) mmol/L Potassium 3.7 (3.6-5.2) mmol/L Chloride 102 (100-108) mmol/L Carbon Dioxide 29 (21-32) mmol/L Anion Gap 9.3 (5.0-14.0) mmol/L BUN 8 (7-18) mg/dL Creatinine 1.3 (0.8-1.3) mg/dL Est Cr Clr Drug Dosing 71.15 mL/min Estimated GFR (MDRD) 59 L (>60) Glucose 122 H (74-106) mg/dL Lactic Acid (0.4-2.0) mmol/L Calcium 7.8 L (8.5-10.1) mg/dL Phosphorus 0.9 L (2.5-4.9) mg/dL Total Bilirubin 1.5 H (0.2-1.0) mg/dL AST 28 (15-37) U/L ALT 45 (12-78) U/L Alkaline Phosphatase 86 (46-116) U/L NT-Pro-B Natriuret Pep 292 H (5-125) pg/mL Total Protein 5.5 L (6.4-8.2) g/dL Albumin 2.2 L (3.4-5.0) g/dL Globulin 3.3 (2.3-3.5) g/dL Albumin/Globulin Ratio 0.7 L (1.2-2.2) Urine Color Yellow Urine Appearance Clear Urine pH 8.0 (4.5-8.0) Ur Specific [place] 1.010 (1.008-1.030) Urine Protein Negative (NEGATIVE) mg/dL Urine Glucose (UA) Normal (NEGATIVE) mg/dL Urine Ketones Negative (NEGATIVE) mg/dL Urine Occult Blood Negative (NEGATIVE) Urine Nitrite Negative (NEGAITVE) Urine Bilirubin Negative (NEGATIVE) Urine Urobilinogen Normal (NORMAL) mg/dL Ur Leukocyte Esterase Negative (NEGATIVE) Urine RBC Not seen (0-5) Urine WBC Not seen (0-5) Ur Epithelial Cells Rare Amorphous Sediment Not seen Urine Bacteria Few Urine Mucus Not seen 12/24/17 Range/Units 04:10 WBC (4.5-11.0) K/uL RBC (4.30-5.90) M/uL Hgb (12.0-15.0) g/dL Hct (40.0-54.0) % MCV (80-98) fL MCH (27-31) pg MCHC (32-36) % Plt Count (150-400) K/uL Sodium (140-148) mmol/L Potassium (3.6-5.2) mmol/L Chloride (100-108) mmol/L Carbon Dioxide (21-32) mmol/L Anion Gap (5.0-14.0) mmol/L BUN (7-18) mg/dL Creatinine (0.8-1.3) mg/dL Est Cr Clr Drug Dosing mL/min Estimated GFR (MDRD) (>60) Glucose (74-106) mg/dL Lactic Acid 1.9 (0.4-2.0) mmol/L Calcium (8.5-10.1) mg/dL Phosphorus (2.5-4.9) mg/dL Total Bilirubin (0.2-1.0) mg/dL AST (15-37) U/L ALT (12-78) U/L Alkaline Phosphatase (46-116) U/L NT-Pro-B Natriuret Pep (5-125) pg/mL Total Protein (6.4-8.2) g/dL Albumin (3.4-5.0) g/dL Globulin (2.3-3.5) g/dL Albumin/Globulin Ratio (1.2-2.2) Urine Color Urine Appearance Urine pH (4.5-8.0) Ur Specific [place] (1.008-1.030) Urine Protein (NEGATIVE) mg/dL Urine Glucose (UA) (NEGATIVE) mg/dL Urine Ketones (NEGATIVE) mg/dL Urine Occult Blood (NEGATIVE) Urine Nitrite (NEGAITVE) Urine Bilirubin (NEGATIVE) Urine Urobilinogen (NORMAL) mg/dL Ur Leukocyte Esterase (NEGATIVE) Urine RBC (0-5) Urine WBC (0-5) Ur Epithelial Cells Amorphous Sediment Urine Bacteria Urine Mucus Tolu Results Last 24 Hours: Microbiology 12/21/17 06:31 Anaerobic Culture - Final Abdominal Fluid - Aspirate NO GROWTH AFTER 3 DAYS 12/21/17 06:31 Gram Stain - Final Abdominal Fluid - Aspirate Wound Culture - Final NO GROWTH AFTER 3 DAYS Med Orders - Current: Current Medications Acetaminophen (Tylenol Jr. 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 Hydroxyzine HCl (Vistaril) 75 - 100 mg IM Q4H PRN PRN Reason: pain Last Admin: 12/21/17 08:06 Dose: 100 mg Piperacillin/Tazobactam/ (Dextrose 3.375 gm/ Premix) 50 mls @ 100 mls/hr IV Q6HR [facility] Last Admin: 12/24/17 03:22 Dose: 100 mls/hr Magnesium Sulfate 2 gm/ Premix 50 mls @ 25 mls/hr IV Q6H [facility] Last Admin: 12/24/17 07:16 Dose: 25 mls/hr Lactated Ringer's (Ringers, Lactated) 1,000 mls @ 125 mls/hr IV ASDIRECTED [facility] Last Admin: 12/24/17 03:10 Dose: 125 mls/hr Multivitamins/Minerals 10 ml/Thiamine HCl 100 mg/ Chromium/Copper/Manganese/ Seleni/Zn 1 ml/ Lactated Ringer's 1,012 mls @ 125 mls/hr IV DAILY@1600 [facility] Last Admin: 12/23/17 17:33 Dose: 125 mls/hr Ketorolac Tromethamine (Toradol) 30 mg IVPUSH Q6H PRN PRN Reason: Pain/Fever Stop: 12/28/17 15:42 Last Admin: 12/23/17 15:53 Dose: 30 mg Metoclopramide HCl (Reglan) 10 mg IVPUSH Q6H PRN PRN Reason: NAUSEA NOT CONTROL BY ZOFRAN Naloxone HCl (Narcan) 0.1 mg IV ASDIRECTED PRN PRN Reason: decreased respiratory rate Nystatin (Mycostatin) 5 ml PO QID [facility] Last Admin: 12/24/17 05:58 Dose: 5 ml Ondansetron HCl (Zofran) 4 mg IVPUSH Q4H PRN PRN Reason: Nausea/Vomiting Pantoprazole Sodium (Protonix Granules) 40 mg PO Q24H SHAYY Last Admin: 12/23/17 10:17 Dose: 40 mg Sodium Chloride (Pearl Nasal Buford) 0 ml LOGAN Q2H PRN PRN Reason: Nasal Dryness Last Admin: 12/23/17 18:12 Dose: 44 ml Discontinued Medications Acetaminophen (Tylenol) 650 mg PO Q6H SHAYY Last Admin: 12/21/17 11:31 Dose: Not Given Cyanocobalamin (Vitamin B12) 1,000 mcg IM ONETIME ONE Stop: 12/23/17 09:01 Last Admin: 12/23/17 10:16 Dose: 1,000 mcg Dexamethasone (Dexamethasone) 4 mg .ROUTE .STK-MED ONE Stop: 12/21/17 04:01 Fentanyl (Sublimaze) Confirm Administered Dose 250 mcg .ROUTE .STK-MED ONE Stop: 12/21/17 05:38 Fentanyl Citrate (Fentanyl) Confirm Administered Dose 500 mcg .ROUTE .STK-MED ONE Stop: 12/21/17 02:23 Furosemide (Lasix) 20 mg IVPUSH ONETIME ONE Stop: 12/22/17 08:01 Last Admin: 12/22/17 08:17 Dose: 20 mg Furosemide (Lasix) 20 mg IVPUSH ONETIME ONE Stop: 12/23/17 10:46 Last Admin: 12/23/17 11:12 Dose: 20 mg Glycopyrrolate (Robinul) 0.6 mg .ROUTE .STK-MED ONE Stop: 12/21/17 04:01 Hydromorphone HCl (Dilaudid Floor And Wall Applier Liquid 15 Mg In Ns 30 Ml) 15 mg IV ASDIRECTED SHAYY; Protocol Last Admin: 12/21/17 02:53 Dose: 15 mg Potassium Chloride 20 meq/ (Premix) 100 mls @ 50 mls/hr IV ONETIME ONE Stop: 12/21/17 03:49 Last Admin: 12/21/17 02:26 Dose: 50 mls/hr Potassium Chloride/Sodium Chloride (Normal Saline With 20 Meq Kcl) 1,000 mls @ 125 mls/hr IV ASDIRECTED SHAYY Dextrose/Lactated Ringer's (Dextrose 5%-Lactated Ringers) 1,000 mls @ 125 mls/ hr IV ASDIRECTED SHAYY Last Infusion: 12/21/17 12:08 Dose: Infused Sodium Chloride (Normal Saline) Confirm Administered Dose 10 mls @ as directed .ROUTE .STK-MED ONE Stop: 12/21/17 05:35 Lactated Ringer's (Ringers, Lactated) Confirm Administered Dose 1,000 mls @ as directed .ROUTE .[facility] ONE Stop: 12/21/17 06:03 Dextrose/Lactated Ringer's (Dextrose 5%-Lactated Ringers) 1,000 mls @ 175 mls/ hr IV ASDIRECTED [facility] Last Admin: 12/22/17 01:32 Dose: 175 mls/hr Multivitamins/Minerals 10 ml/Thiamine HCl 100 mg/ Chromium/Copper/Manganese/ Seleni/Zn 1 ml/ Dextrose/Lactated Ringer's 1,012 mls @ 174.826 mls/hr IV DAILY@ 1600 [facility] Last Admin: 12/21/17 17:35 Dose: 174.826 mls/hr Cefoxitin Sodium 2 gm/ Sodium (Chloride) 50 mls @ 100 mls/hr IV Q6H [facility] Last Admin: 12/22/17 14:24 Dose: 100 mls/hr Lactated Ringer's (Ringers, Lactated) 500 mls @ 500 mls/hr IV BOLUS [facility] Last Admin: 12/21/17 17:35 Dose: 500 mls/hr Lactated Ringer's (Ringers, Lactated) 500 mls @ 500 mls/hr IV STAT SHAYY Lactated Ringer's (Ringers, Lactated) 500 mls @ 500 mls/hr IV ONETIME ONE Stop: 12/22/17 00:29 Last Admin: 12/21/17 23:54 Dose: 500 mls/hr Lactated Ringer's (Ringers, Lactated) 500 mls @ 500 mls/hr IV ONETIME ONE Stop: 12/22/17 07:29 Last Admin: 12/22/17 06:35 Dose: 500 mls/hr Dextrose/Lactated Ringer's (Dextrose 5%-Lactated Ringers) 1,000 mls @ 100 mls/ hr IV ASDIRECTED [facility] Last Admin: 12/23/17 04:25 Dose: 100 mls/hr Multivitamins/Minerals 10 ml/Thiamine HCl 100 mg/ Chromium/Copper/Manganese/ Seleni/Zn 1 ml/ Dextrose/Lactated Ringer's 1,012 mls @ 100 mls/hr IV DAILY@ 1600 [facility] Last Admin: 12/22/17 16:39 Dose: 100 mls/hr Piperacillin Sod/Tazobactam (Sod 3.375 gm/ Sodium Chloride) 50 mls @ 100 mls/ hr IV Q6H [facility] Last Admin: 12/23/17 04:16 Dose: 100 mls/hr Potassium Chloride 20 meq/Lidocaine HCl 2 ml/ Sodium Chloride 112 mls @ 50 mls/ hr IV Q2H [facility] Stop: 12/22/17 20:59 Last Admin: 12/22/17 20:30 Dose: 50 mls/hr Acetaminophen 1,000 mg/ Premix 100 mls @ 400 mls/hr IV NOW ONE Stop: 12/22/17 17:00 Last Admin: 12/22/17 17:15 Dose: 400 mls/hr Lidocaine HCl (Xylocaine-Mpf 1%) Confirm Administered Dose 2 mls @ as directed .ROUTE .ST-MED ONE Stop: 12/22/17 17:10 Last Admin: 12/22/17 17:32 Dose: Not Given Potassium Chloride (Kcl 20 Meq In Water 100 Ml) Confirm Administered Dose 100 mls @ as directed .ROUTE .STK-MED ONE Stop: 12/22/17 17:11 Last Admin: 12/22/17 17:32 Dose: Not Given Potassium Chloride (Kcl 20 Meq In Water 100 Ml) Confirm Administered Dose 100 mls @ as directed .ROUTE .ST-MED ONE Stop: 12/22/17 19:51 Last Admin: 12/22/17 20:31 Dose: Not Given Sodium Chloride (Normal Saline) 85 mls @ 3.5 mls/sec IV ASDIRECTED [facility] Stop: 12/23/17 08:00 Potassium Chloride 20 meq/Lidocaine HCl 2 ml/ Sodium Chloride 112 mls @ 56 mls/ hr IV Q2H [facility] Stop: 12/23/17 15:59 Last Admin: 12/23/17 14:42 Dose: 56 mls/hr Acetaminophen 1,000 mg/ Premix 100 mls @ 400 mls/hr IV NOW ONE Stop: 12/23/17 18:14 Last Admin: 12/23/17 17:32 Dose: 400 mls/hr Iohexol (Omnipaque-300) 50 ml PO ASDIRECTED PRN PRN Reason: RADIOLOGY EXAM Last Admin: 12/22/17 04:31 Dose: 50 ml Iohexol (Omnipaque) 10 ml PO ONETIME ONE Stop: 12/23/17 08:01 Last Admin: 12/23/17 07:56 Dose: 10 ml Iopamidol (Isovue-300 (61%)) 140 ml IV . DIRECTED PRN PRN Reason: RADIOLOGY EXAM Stop: 12/23/17 08:00 Last Admin: 12/23/17 08:06 Dose: 140 ml Labetalol HCl (Normodyne) 5 - 15 mg IVPUSH Q1H PRN PRN Reason: SBP over 160 OR DBP over 95 Lidocaine HCl (Xylocaine-Mpf 1%) 2 ml INJECT ONETIME ONE Stop: 12/21/17 02:08 Last Admin: 12/21/17 02:26 Dose: 2 ml Meropenem (Merrem) Confirm Administered Dose 500 mg .ROUTE .STK-MED ONE Stop: 12/21/17 05:35 Miscellaneous Information (Remove Patch) 1 ea TRDERM ONETIME ONE Stop: 12/23/17 10:01 Last Admin: 12/23/17 10:16 Dose: Not Given Neostigmine Methylsulfate (Neostigmine) 3 mg .ROUTE .STK-MED ONE Stop: 12/21/17 04:01 Scopolamine Patch (Check) 1 each TOP DAILY [facility] Stop: 12/23/17 09:01 Last Admin: 12/23/17 08:58 Dose: Not Given Ondansetron HCl (Zofran) 4 mg .ROUTE .STK-MED ONE Stop: 12/21/17 04:01 Pantoprazole Sodium (Protonix Iv) 40 mg IVPUSH Q24H [facility] Last Admin: 12/21/17 11:33 Dose: 40 mg Propofol (Diprivan 20 Ml) 200 mg .ROUTE .STK-MED ONE Stop: 12/21/17 04:01 Rocuronium Ehrhardt (Zemuron) 40 mg .ROUTE .STK-MED ONE Stop: 12/21/17 04:01 Scopolamine (Transderm-Scop) 1.5 mg TOP Q72H [facility] Stop: 12/23/17 12:31 Last Admin: 12/21/17 13:24 Dose: 1.5 mg Sodium Chloride (Saline Flush) 10 ml FLUSH ONETIME PRN PRN Reason: per radiology protocol Stop: 12/23/17 08:00 Last Admin: 12/23/17 08:06 Dose: 10 ml Succinylcholine Chloride (Quelicin) 100 mg .ROUTE .STK-MED ONE Stop: 12/21/17 04:01 Tamsulosin HCl (Flomax) 0.4 mg PO ONETIME ONE Stop: 12/23/17 10:01 Last Admin: 12/23/17 10:15 Dose: 0.4 mg - Exam Quality Assessment: Supplemental Oxygen, DVT Prophylaxis. No: Central Line/PICC , Urine Catheter General: Alert, Oriented, Cooperative, No Acute Distress Neck: Supple, Trachea Midline Lungs: Clear to Auscultation, Normal Respiratory Effort Cardiovascular: Regular Rate, Regular Rhythm, No Murmurs GI/Abdominal Exam: Soft, No Organomegaly, Tender. No: Distended, Guarding, Rigid, Rebound Back Exam: Normal Inspection, Full Range of Motion Extremities: Non-Tender, No Pedal Edema Skin: Warm, Dry Wound/Incisions: Healing Well Consult PN Assessment/Plan Procedures: Procedures ASSAY OF LACTIC ACID (11/24/17) BLOOD TYPING SEROLOGIC ABO (07/26/17) BLOOD TYPING SEROLOGIC RH(D) (07/26/17) COMPLETE CBC AUTOMATED (11/24/17) CT ABD & PELV W/CONTRAST (11/24/17) EGD DILATE STRICTURE (11/28/17) EMERGENCY DEPT VISIT (11/24/17) HYDRATE IV INFUSION ADD-ON (11/24/17) METABOLIC PANEL TOTAL CA (11/24/17) RBC ANTIBODY SCREEN (07/26/17) ROUTINE VENIPUNCTURE (11/24/17) THER/PROPH/DIAG INJ IV PUSH (11/24/17) Problem List Initiated/Reviewed/Updated: Yes My Orders Last 24 Hours: My Active Orders 12/25/17 05:00 Chest 2V [CR] Timed Plan: Persistent fevers- follow-up CT scan obtained yesterday shows no ongoing evidence of perforation or significant free air within the abdomen. Did document a small ureteral stone and right hydronephrosis. Flank pain has resolved since yesterday when he has had recurrent temperature elevations. Cultures remain negative thus far, follow-up urinalysis was clear. No other obvious source of infection has been identified to this point. -tamsulosin -Follow-up chest x-ray to look for any evidence of infiltrate -continue current antibiotics with Pip/Tazo
[2017-12-24] MEDS: Pantoprazole 40 MG Delayed-Release Granules 1 Packet PO SCH (10:00)
[2017-12-24] MEDS ORDERED: Potassium Phosphates 3 mMole/ML 5 ML SDV IV ONE (12:00)
[2017-12-24] MEDS: Potassium Phosphates 25 MMOLE in Sodium Chloride 0.9% 250 ML IV SCH ×3 (13:03→22:28)
--- NOTE | 2017-12-24 13:07 | PN ---
DATE OF SERVICE: 12/23/2017 The patient developed some temps up to 101.9, and generally running around 100. Heart rate is 100 to 110. Blood pressures are at 130 over 90s to 150s over 80s. He did have kind of a little bit more in the way of oxygen to keep O2 sats in the low 90s, but not have any significant productive cough. Continues to complain of some discomfort in the right abdomen. He does mildly tender to palpation in that area and winced when the binder is being placed tight on that area. Abdominal wall does not show any or signs of infection, drainage are cleared. Urine output has been satisfactory with the Z[place]ala having come out yesterday. Labs show a white count of 11.7. CBC is otherwise unremarkable. The lactate was up slightly yesterday at 2.4; later in the day was 1.9, and is pending this morning. Additionally the bilirubin is up slightly at 1.3, up from 0.7 on admission. The only other liver function that is abnormal is AFC slightly elevated at 48. Alkaline phosphatase and ALT are normal. At this point, the patient presents somewhat of a diagnostic quandary. We will obtain a CT scan of the abdomen and pelvis, possibly dealing with some pulmonary complication at this point, but we will repeat the CT scan and see if there is anything evolving that is identifiable in terms of the underlying diagnosis. Of note, the intraoperative cultures thus far have been negative. Javier Lopez MD /[id number]
--- NOTE | 2017-12-24 13:31 | PN ---
DATE OF SERVICE: 12/22/2017 The patient has been afebrile with stable vital signs. Overall, no major problems were noted. Were still playing catch up somewhat on IV fluids. We'll leave the IV going at a relatively high rate today and otherwise begin a step-2 diet and make sure that goes okay. 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 Otherwise, not continue much in the way of pain medicine and he can get in the shower. If he'd like we'll check some labs in the morning. Javier Lopez MD /[id number]
[2017-12-24] MEDS: Ketorolac 30 MG/ML SDV IVPUSH PRN (17:05)
[2017-12-24] MEDS ORDERED: Lidocaine 1% 2 ML ONE (17:08)
[2017-12-24] MEDS ORDERED: Acetaminophen 500 MG Tab PO PRN (17:42)
[2017-12-24] MEDS: MVI, Adult with Vitamin K 10 ML, Thiamine 100 MG, Chromium/Copper/Mang/Selen/Zn 1 ML in... IV SCH ×4 (18:10)
[2017-12-25] MEDS: Magnesium Sulfate/Water 2 GM in Premix Bag 1 BAG IV SCH ×4 (01:34→20:13)
[2017-12-25] MEDS: Lactated Ringers 1,000 ML IV SCH ×2 (02:37→11:14)
[2017-12-25] MEDS: Piperacillin/Tazobactam/Dext 3.375 GM in Premix Bag 1 BAG IV SCH ×4 (03:40→21:37)
[2017-12-25] MEDS: Heparin Sodium 5,000 Units/ML Vial SUBCUT SCH ×2 (03:41→15:41)
[2017-12-25] MEDS: Nystatin Susp 100,000 Unit/ML 5 ML UD Cup PO SCH ×4 (05:03→21:30)
[2017-12-25] MEDS: Gabapentin 250 MG/5 ML Solution ML 470 ML Bottle PO SCH ×3 (08:27→20:00)
--- NOTE | 2017-12-25 08:48 | PN ---
DATE OF SERVICE: 12/24/2017 The patient has continued to run temperatures up to 102 range. Vital signs, otherwise, have been stable. He does continue to have some mild tachycardia in the 100 to 110 range. Otherwise, he is not feeling overly ill, complains of some mild discomfort in the right abdomen, but he is eating satisfactorily. Urine output has been satisfactory as well. CT scan yesterday showed a kidney stone in the right proximal ureter with some mild dilation. Clinically it makes one not overly suspicious as the cause of his problems, however. Otherwise, labs this morning show a hemoglobin of 12.5, white count is up somewhat at 16.2, and electrolytes are unremarkable. Creatinine is stable at 1.3, and, of note, his bilirubin continues to gradually increase and is presently 1.5, although all of the other liver function tests are entirely normal. He has had several blood cultures obtained, which likewise have all been negative. Urinalysis yesterday was essentially negative as well with no blood, making it again less likely that we are dealing with any complicated urinary tract issue. At this point, I am not sure what the diagnosis is. I suspect this may be a viral process. The PARISH drains have been entirely clear, and cultures done intraoperatively from those have also have been negative. We will have Dr. Nieves review the case today in terms of attempting to establish a diagnosis more firmly. Otherwise, we will give him a step-2 diet, maximize activity, and work with pulmonary toilet. Javier Lopez MD /[id number]
--- NOTE | 2017-12-25 09:18 | CR ---
Chest 2V FINDINGS: There is focal consolidation of the right upper lobe. There are shallow lung volumes. There is mild basilar atelectasis. The heart and vascular structures appear within normal limits. Impression: 1. Right upper lobe pneumonia. Follow-up is recommended to confirm resolution.
[2017-12-25] MEDS: Levofloxacin/Dextrose 5%-Water 750 MG in Premix Bag 1 BAG IV SCH (10:14)
[2017-12-25] MEDS: Pantoprazole 40 MG Delayed-Release Granules 1 Packet PO SCH (10:49)
[2017-12-25] MEDS: Ketorolac 30 MG/ML SDV IVPUSH PRN (12:00)
[2017-12-25] MEDS ORDERED: Codeine/guaiFENesin 100mg-10 MG/5 ML Syrup 10 ML Cup PO PRN (13:54)
[2017-12-25] MEDS ORDERED: Albuterol 0.083% 2.5 MG/3 ML Neb Soln NEB PRN (13:54)
[2017-12-25] MEDS ORDERED: oxyCODONE 5 MG Tab PO PRN (13:54)
--- NOTE | 2017-12-25 14:02 | PCM.CONSN ---
- General Info Date of Service: 12/25/17 Subjective Update: Zak is experienced modest improvement over the past 24 hours. Has had recurrent temperature elevations but not as high as it been previously and no associated delirium. Chest x-ray does show evidence of a new right upper lobe infiltrate, with pneumonia is likely cause of his fevers. Antibiotic coverage has been expanded to include levofloxacin. He is tolerated his current diet, with no symptoms of nausea or vomiting. White blood cell count remains elevated but seems to have leveled off with no further increase. Functional Status: Reports: Tolerating Diet, Ambulating, Urinating - Review of Systems General: Reports: Fever, Weakness, Chills Pulmonary: Reports: Shortness of Breath, Cough, Sputum. Denies: Hemoptysis, Wheezing Cardiovascular: Reports: Dyspnea on Exertion. Denies: Chest Pain, Palpitations , Orthopnea, PND Gastrointestinal: Reports: Abdominal Pain. Denies: Constipation, Diarrhea, Difficulty Swallowing, Nausea, Vomiting Musculoskeletal: Reports: No Symptoms - Patient Data Vitals - Most Recent: Last Vital Signs Temp 101.1 F H 12/25/17 10:51 Pulse 103 H 12/25/17 10:51 Resp 18 12/25/17 10:51 BP 155/79 H 12/25/17 10:51 Pulse Ox 91 L 12/25/17 12:13 Weight - Most Recent: 220 lb 14.416 oz I&O - Last 24 Hours: Intake & Output 12/24/17 12/25/17 12/25/17 22:59 06:59 14:59 Intake Total 1040 2964 Output Total 668 435 5296 Balance 340 2124 -1200 Lab Results Last 24 Hours: Laboratory Results - last 24 hr 12/25/17 12/25/17 12/25/17 Range/Units 04:15 04:15 04:15 WBC 16.0 H (4.5-11.0) K/uL RBC 4.51 (4.30-5.90) M/uL Hgb 12.2 (12.0-15.0) g/dL Hct 37.4 L (40.0-54.0) % MCV 83 (80-98) fL MCH 27 (27-31) pg MCHC 33 (32-36) % Plt Count 315 (150-400) K/uL Sodium 141 (140-148) mmol/L Potassium 4.1 (3.6-5.2) mmol/L Chloride 105 (100-108) mmol/L Carbon Dioxide 28 (21-32) mmol/L Anion Gap 8.5 (5.0-14.0) mmol/L BUN 9 (7-18) mg/dL Creatinine 1.5 H (0.8-1.3) mg/dL Est Cr Clr Drug Dosing 61.66 mL/min Estimated GFR (MDRD) 50 L (>60) Glucose 99 (74-106) mg/dL Lactic Acid 1.5 (0.4-2.0) mmol/L Calcium 7.6 L (8.5-10.1) mg/dL Phosphorus 4.3 (2.5-4.9) mg/dL Total Bilirubin 1.2 H (0.2-1.0) mg/dL AST 27 (15-37) U/L ALT 38 (12-78) U/L Alkaline Phosphatase 110 (46-116) U/L Total Protein 5.8 L (6.4-8.2) g/dL Albumin 2.0 L (3.4-5.0) g/dL Globulin 3.8 H (2.3-3.5) g/dL Albumin/Globulin Ratio 0.5 L (1.2-2.2) Tolu Results Last 24 Hours: Microbiology 12/24/17 04:20 Aerobic Blood Culture - Preliminary Blood - Arm, Right NO GROWTH AFTER 1 DAY Anaerobic Blood Culture - Preliminary NO GROWTH AFTER 1 DAY 12/24/17 04:10 Aerobic Blood Culture - Preliminary Blood - Arm, Right NO GROWTH AFTER 1 DAY Anaerobic Blood Culture - Preliminary NO GROWTH AFTER 1 DAY 12/23/17 16:30 Aerobic Blood Culture - Preliminary Blood - Arm, Right NO GROWTH AFTER 1 DAY Anaerobic Blood Culture - Preliminary NO GROWTH AFTER 1 DAY 12/23/17 16:25 Aerobic Blood Culture - Preliminary Blood - Arm, Right NO GROWTH AFTER 1 DAY Anaerobic Blood Culture - Preliminary NO GROWTH AFTER 1 DAY Med Orders - Current: Current Medications Acetaminophen (Tylenol Extra Strength) 1,000 mg PO Q6H PRN PRN Reason: Fever Last Admin: 12/24/17 18:16 Dose: 1,000 mg Albuterol (Proventil Neb Soln) 2.5 mg NEB Q4H PRN PRN Reason: Dyspnea Albuterol/Ipratropium (Duoneb 3.0-0.5 Mg/3 Ml) 3 ml NEB QIDRT [facility] Benzonatate (Tessalon Perles) 100 mg PO TID PRN PRN Reason: Cough Diphenhydramine HCl (Benadryl) 25 - 50 mg IVPUSH Q4H PRN PRN Reason: ITCHING Gabapentin (Neurontin) 300 mg PO TID [facility] Last Admin: 12/25/17 08:27 Dose: Not Given Guaifenesin/Codeine Phosphate (Robitussin Ac) 10 ml PO Q4H PRN PRN Reason: Cough Heparin Sodium (Porcine) (Heparin Sodium) 5,000 units SUBCUT Q12H [facility] Last Admin: 12/25/17 03:41 Dose: 5,000 units Hydroxyzine HCl (Vistaril) 75 - 100 mg IM Q4H PRN PRN Reason: pain Last Admin: 12/21/17 08:06 Dose: 100 mg Piperacillin/Tazobactam/ (Dextrose 3.375 gm/ Premix) 50 mls @ 100 mls/hr IV Q6HR [facility] Last Admin: 12/25/17 09:12 Dose: 100 mls/hr Magnesium Sulfate 2 gm/ Premix 50 mls @ 25 mls/hr IV Q6H [facility] Last Admin: 12/25/17 07:42 Dose: 25 mls/hr Multivitamins/Minerals 10 ml/Thiamine HCl 100 mg/ Chromium/Copper/Manganese/ Seleni/Zn 1 ml/ Lactated Ringer's 1,012 mls @ 125 mls/hr IV DAILY@1600 [facility] Last Admin: 12/24/17 18:10 Dose: 125 mls/hr Levofloxacin/Dextrose 750 mg/ (Premix) 150 mls @ 100 mls/hr IV Q24H [facility] Last Admin: 12/25/17 10:14 Dose: 100 mls/hr Ketorolac Tromethamine (Toradol) 30 mg IVPUSH Q6H PRN PRN Reason: Pain/Fever Stop: 12/28/17 15:42 Last Admin: 12/25/17 12:00 Dose: 30 mg Metoclopramide HCl (Reglan) 10 mg IVPUSH Q6H PRN PRN Reason: NAUSEA NOT CONTROL BY ZOFRAN Naloxone HCl (Narcan) 0.1 mg IV ASDIRECTED PRN PRN Reason: decreased respiratory rate Nystatin (Mycostatin) 5 ml PO QID [facility] Last Admin: 12/25/17 09:13 Dose: 5 ml Ondansetron HCl (Zofran) 4 mg IVPUSH Q4H PRN PRN Reason: Nausea/Vomiting Oxycodone HCl (Oxycodone) 0 mg PO Q4H PRN PRN Reason: Pain Pantoprazole Sodium (Protonix Granules) 40 mg PO Q24H [facility] Last Admin: 12/25/17 10:49 Dose: 40 mg Sodium Chloride (Cofield Nasal Dawson) 0 ml LOGAN Q2H PRN PRN Reason: Nasal Dryness Last Admin: 12/23/17 18:12 Dose: 44 ml Discontinued Medications Acetaminophen (Tylenol) 650 mg PO Q6H [facility] Last Admin: 12/21/17 11:31 Dose: Not Given Acetaminophen (Tylenol Jr. Meltaways) 640 mg PO Q6H [facility] Last Admin: 12/24/17 12:11 Dose: 640 mg Cyanocobalamin (Vitamin B12) 1,000 mcg IM ONETIME ONE Stop: 12/23/17 09:01 Last Admin: 12/23/17 10:16 Dose: 1,000 mcg Dexamethasone (Dexamethasone) 4 mg .ROUTE .STK-MED ONE Stop: 12/21/17 04:01 Fentanyl (Sublimaze) Confirm Administered Dose 250 mcg .ROUTE .STK-MED ONE Stop: 12/21/17 05:38 Fentanyl Citrate (Fentanyl) Confirm Administered Dose 500 mcg .ROUTE .STK-MED ONE Stop: 12/21/17 02:23 Furosemide (Lasix) 20 mg IVPUSH ONETIME ONE Stop: 12/22/17 08:01 Last Admin: 12/22/17 08:17 Dose: 20 mg Furosemide (Lasix) 20 mg IVPUSH ONETIME ONE Stop: 12/23/17 10:46 Last Admin: 12/23/17 11:12 Dose: 20 mg Glycopyrrolate (Robinul) 0.6 mg .ROUTE .STK-MED ONE Stop: 12/21/17 04:01 Hydromorphone HCl (Dilaudid Sales Service Professional 15 Mg In Ns 30 Ml) 15 mg IV ASDIRECTED SHAYY; Protocol Last Admin: 12/21/17 02:53 Dose: 15 mg Hydromorphone HCl (Dilaudid Sales Service Professional 15 Mg In Ns 30 Ml) 0 mg IV ASDIRECTED PRN; Protocol PRN Reason: DIET TECH PAIN CONTROL Potassium Chloride 20 meq/ (Premix) 100 mls @ 50 mls/hr IV ONETIME ONE Stop: 12/21/17 03:49 Last Admin: 12/21/17 02:26 Dose: 50 mls/hr Potassium Chloride/Sodium Chloride (Normal Saline With 20 Meq Kcl) 1,000 mls @ 125 mls/hr IV ASDIRECTED SHAYY Dextrose/Lactated Ringer's (Dextrose 5%-Lactated Ringers) 1,000 mls @ 125 mls/ hr IV ASDIRECTED SHAYY Last Infusion: 12/21/17 12:08 Dose: Infused Sodium Chloride (Normal Saline) Confirm Administered Dose 10 mls @ as directed .ROUTE .[facility] ONE Stop: 12/21/17 05:35 Lactated Ringer's (Ringers, Lactated) Confirm Administered Dose 1,000 mls @ as directed .ROUTE .[facility] ONE Stop: 12/21/17 06:03 Dextrose/Lactated Ringer's (Dextrose 5%-Lactated Ringers) 1,000 mls @ 175 mls/ hr IV ASDIRECTED [facility] Last Admin: 12/22/17 01:32 Dose: 175 mls/hr Multivitamins/Minerals 10 ml/Thiamine HCl 100 mg/ Chromium/Copper/Manganese/ Seleni/Zn 1 ml/ Dextrose/Lactated Ringer's 1,012 mls @ 174.826 mls/hr IV DAILY@ 1600 [facility] Last Admin: 12/21/17 17:35 Dose: 174.826 mls/hr Cefoxitin Sodium 2 gm/ Sodium (Chloride) 50 mls @ 100 mls/hr IV Q6H [facility] Last Admin: 12/22/17 14:24 Dose: 100 mls/hr Lactated Ringer's (Ringers, Lactated) 500 mls @ 500 mls/hr IV BOLUS [facility] Last Admin: 12/21/17 17:35 Dose: 500 mls/hr Lactated Ringer's (Ringers, Lactated) 500 mls @ 500 mls/hr IV STAT SHAYY Lactated Ringer's (Ringers, Lactated) 500 mls @ 500 mls/hr IV ONETIME ONE Stop: 12/22/17 00:29 Last Admin: 12/21/17 23:54 Dose: 500 mls/hr Lactated Ringer's (Ringers, Lactated) 500 mls @ 500 mls/hr IV ONETIME ONE Stop: 12/22/17 07:29 Last Admin: 12/22/17 06:35 Dose: 500 mls/hr Dextrose/Lactated Ringer's (Dextrose 5%-Lactated Ringers) 1,000 mls @ 100 mls/ hr IV ASDIRECTED [facility] Last Admin: 12/23/17 04:25 Dose: 100 mls/hr Multivitamins/Minerals 10 ml/Thiamine HCl 100 mg/ Chromium/Copper/Manganese/ Seleni/Zn 1 ml/ Dextrose/Lactated Ringer's 1,012 mls @ 100 mls/hr IV DAILY@ 1600 [facility] Last Admin: 12/22/17 16:39 Dose: 100 mls/hr Piperacillin Sod/Tazobactam (Sod 3.375 gm/ Sodium Chloride) 50 mls @ 100 mls/ hr IV Q6H [facility] Last Admin: 12/23/17 04:16 Dose: 100 mls/hr Potassium Chloride 20 meq/Lidocaine HCl 2 ml/ Sodium Chloride 112 mls @ 50 mls/ hr IV Q2H [facility] Stop: 12/22/17 20:59 Last Admin: 12/22/17 20:30 Dose: 50 mls/hr Acetaminophen 1,000 mg/ Premix 100 mls @ 400 mls/hr IV NOW ONE Stop: 12/22/17 17:00 Last Admin: 12/22/17 17:15 Dose: 400 mls/hr Lidocaine HCl (Xylocaine-Mpf 1%) Confirm Administered Dose 2 mls @ as directed .ROUTE .STK-MED ONE Stop: 12/22/17 17:10 Last Admin: 12/22/17 17:32 Dose: Not Given Potassium Chloride (Kcl 20 Meq In Water 100 Ml) Confirm Administered Dose 100 mls @ as directed .ROUTE .STK-MED ONE Stop: 12/22/17 17:11 Last Admin: 12/22/17 17:32 Dose: Not Given Potassium Chloride (Kcl 20 Meq In Water 100 Ml) Confirm Administered Dose 100 mls @ as directed .ROUTE .STK-MED ONE Stop: 12/22/17 19:51 Last Admin: 12/22/17 20:31 Dose: Not Given Sodium Chloride (Normal Saline) 85 mls @ 3.5 mls/sec IV ASDIRECTED [facility] Stop: 12/23/17 08:00 Potassium Chloride 20 meq/Lidocaine HCl 2 ml/ Sodium Chloride 112 mls @ 56 mls/ hr IV Q2H [facility] Stop: 12/23/17 15:59 Last Admin: 12/23/17 14:42 Dose: 56 mls/hr Lactated Ringer's (Ringers, Lactated) 1,000 mls @ 125 mls/hr IV ASDIRECTED [facility] Last Admin: 12/25/17 11:14 Dose: 125 mls/hr Acetaminophen 1,000 mg/ Premix 100 mls @ 400 mls/hr IV NOW ONE Stop: 12/23/17 18:14 Last Admin: 12/23/17 17:32 Dose: 400 mls/hr Potassium Phosphate 25 mmole/ (Sodium Chloride) 258.3333 mls @ 65 mls/hr IV Q4H [facility] Stop: 12/25/17 00:29 Last Admin: 12/24/17 22:28 Dose: 65 mls/hr Lidocaine HCl (Xylocaine-Mpf 1%) Confirm Administered Dose 2 mls @ as directed .ROUTE .STK-MED ONE Stop: 12/24/17 17:09 Iohexol (Omnipaque-300) 50 ml PO ASDIRECTED PRN PRN Reason: RADIOLOGY EXAM Last Admin: 12/22/17 04:31 Dose: 50 ml Iohexol (Omnipaque) 10 ml PO ONETIME ONE Stop: 12/23/17 08:01 Last Admin: 12/23/17 07:56 Dose: 10 ml Iopamidol (Isovue-300 (61%)) 140 ml IV . DIRECTED PRN PRN Reason: RADIOLOGY EXAM Stop: 12/23/17 08:00 Last Admin: 12/23/17 08:06 Dose: 140 ml Labetalol HCl (Normodyne) 5 - 15 mg IVPUSH Q1H PRN PRN Reason: SBP over 160 OR DBP over 95 Lidocaine HCl (Xylocaine-Mpf 1%) 2 ml INJECT ONETIME ONE Stop: 12/21/17 02:08 Last Admin: 12/21/17 02:26 Dose: 2 ml Meropenem (Merrem) Confirm Administered Dose 500 mg .ROUTE .STK-MED ONE Stop: 12/21/17 05:35 Miscellaneous Information (Remove Patch) 1 ea TRDERM ONETIME ONE Stop: 12/23/17 10:01 Last Admin: 12/23/17 10:16 Dose: Not Given Neostigmine Methylsulfate (Neostigmine) 3 mg .ROUTE .STK-MED ONE Stop: 12/21/17 04:01 Scopolamine Patch (Check) 1 each TOP DAILY SHAYY Stop: 12/23/17 09:01 Last Admin: 12/23/17 08:58 Dose: Not Given Ondansetron HCl (Zofran) 4 mg .ROUTE .STK-MED ONE Stop: 12/21/17 04:01 Pantoprazole Sodium (Protonix Iv) 40 mg IVPUSH Q24H [facility] Last Admin: 12/21/17 11:33 Dose: 40 mg Propofol (Diprivan 20 Ml) 200 mg .ROUTE .STK-MED ONE Stop: 12/21/17 04:01 Rocuronium Dexter (Zemuron) 40 mg .ROUTE .STK-MED ONE Stop: 12/21/17 04:01 Scopolamine (Transderm-Scop) 1.5 mg TOP Q72H [facility] Stop: 12/23/17 12:31 Last Admin: 12/21/17 13:24 Dose: 1.5 mg Sodium Chloride (Saline Flush) 10 ml FLUSH ONETIME PRN PRN Reason: per radiology protocol Stop: 12/23/17 08:00 Last Admin: 12/23/17 08:06 Dose: 10 ml Succinylcholine Chloride (Quelicin) 100 mg .ROUTE .STK-MED ONE Stop: 12/21/17 04:01 Tamsulosin HCl (Flomax) 0.4 mg PO ONETIME ONE Stop: 12/23/17 10:01 Last Admin: 12/23/17 10:15 Dose: 0.4 mg - Exam Quality Assessment: DVT Prophylaxis General: Alert, Oriented, Cooperative, Mild Distress Lungs: Clear to Auscultation, Normal Respiratory Effort Cardiovascular: Regular Rate, Regular Rhythm, No Murmurs GI/Abdominal Exam: Soft, No Organomegaly, Tender. No: Distended, Guarding, Rigid, Rebound Extremities: Non-Tender, Pedal Edema Skin: Warm, Dry, Intact Consult PN Assessment/Plan Procedures: Procedures ASSAY OF LACTIC ACID (11/24/17) BLOOD TYPING SEROLOGIC ABO (07/26/17) BLOOD TYPING SEROLOGIC RH(D) (07/26/17) COMPLETE CBC AUTOMATED (11/24/17) CT ABD & PELV W/CONTRAST (11/24/17) EGD DILATE STRICTURE (11/28/17) EMERGENCY DEPT VISIT (11/24/17) HYDRATE IV INFUSION ADD-ON (11/24/17) METABOLIC PANEL TOTAL CA (11/24/17) RBC ANTIBODY SCREEN (07/26/17) ROUTINE VENIPUNCTURE (11/24/17) THER/PROPH/DIAG INJ IV PUSH (11/24/17) Problem List Initiated/Reviewed/Updated: Yes My Orders Last 24 Hours: My Active Orders 12/25/17 10:00 Levofloxacin/Dextrose 5%-Water [Levaquin in D5W 750 MG/150 ML] 750 mg Premix Bag 1 bag IV Q24H 12/25/17 13:54 Albuterol [Proventil Neb Soln] 2.5 mg NEB Q4H PRN Benzonatate [Tessalon Perles] 100 mg PO TID PRN Codeine/guaiFENesin [Robitussin AC] 10 ml PO Q4H PRN oxyCODONE See Dose Instructions PO Q4H PRN 12/25/17 13:55 RT Aerosol Therapy [RC] ASDIRECTED 12/25/17 13:56 Convert IV to Saline Lock [OM.PC] Routine 12/25/17 15:00 Albuterol/Ipratropium [DuoNeb 3.0-0.5 MG/3 ML] 3 ml NEB QIDRT 12/26/17 05:00 CBC WITH AUTO DIFF [HEME] Timed COMPREHENSIVE METABOLIC PN,CMP [CHEM] Timed MAGNESIUM [CHEM] Timed Plan: Right lung pneumonia- identified on chest x-ray, likely cause of recent fevers as well as recently developed cough and shortness of breath. -Blood cultures pending -Nebulizer therapy as needed -Robitussin-AC and Tessalon Perles as needed for cough -Continue Zosyn and levofloxacin Status post exploratory laparotomy -Postoperative care per Dr. Lopez Right ureteral calculus-pain has resolved, likely that the stone has passed
[2017-12-25] MEDS: Albuterol/Ipratropium 3.0-0.5 MG/3 ML Neb Soln NEB SCH ×2 (14:57→20:09)
--- NOTE | 2017-12-25 15:29 | PN ---
DATE OF SERVICE: 12/25/2017 The patient continues to run temperatures up in the 101 range, and when he does get these fevers, he feels quite ill in a general sense, not complaining of any specific pain. He does report a mild degree of shortness of breath, particularly when he is febrile. It is notable that the pulse oximetry is below what one would expect in the 91% to 92% range. Chest x-ray perhaps showed some sense of infiltrates, but I am not sure of that. I will have Dr. Nieves and the radiologist review that. The patient was empirically started on Zosyn yesterday per Dr. Nieves. PARISH drains are completely serous, and I do not think we are dealing with a surgical problem at this point, and those will be removed. Otherwise will continue the step-2 diet and will ask Dr. Nieves to continue to follow the patient until we get some resolution of the situation in terms of diagnosis and treatment. Javier Lopez MD /[id number]
[2017-12-25] MEDS: Benzonatate 100 MG Cap PO PRN ×2 (15:44→23:16)
[2017-12-25] MEDS: MVI, Adult with Vitamin K 10 ML, Thiamine 100 MG, Chromium/Copper/Mang/Selen/Zn 1 ML in... IV SCH ×4 (16:32)
[2017-12-26] MEDS: Magnesium Sulfate/Water 2 GM in Premix Bag 1 BAG IV SCH ×4 (01:45→21:41)
[2017-12-26] MEDS: Heparin Sodium 5,000 Units/ML Vial SUBCUT SCH ×2 (04:24→16:49)
[2017-12-26] MEDS: Piperacillin/Tazobactam/Dext 3.375 GM in Premix Bag 1 BAG IV SCH ×2 (04:29→11:02)
[2017-12-26] MEDS: Albuterol/Ipratropium 3.0-0.5 MG/3 ML Neb Soln NEB SCH ×4 (07:17→21:44)
[2017-12-26] MEDS: Nystatin Susp 100,000 Unit/ML 5 ML UD Cup PO SCH ×4 (07:29→21:46)
[2017-12-26] MEDS: Gabapentin 250 MG/5 ML Solution ML 470 ML Bottle PO SCH ×3 (08:09→21:46)
--- NOTE | 2017-12-26 10:38 | PCM.CONSN ---
- General Info Date of Service: 12/26/17 Subjective Update: This patient has been stable since yesterday and reports feeling significantly improved. Appetite has been fairly good and overall energy level seems to be improving. There is been no recurrent temperature elevation over the past 24 hours and he has been hemodynamically stable. Respiratory symptoms are significantly improved over the past 24 hours. - Review of Systems General: Reports: Weakness. Denies: Fever, Chills Pulmonary: Reports: Cough. Denies: Shortness of Breath, Sputum, Hemoptysis, Wheezing Cardiovascular: Reports: No Symptoms Gastrointestinal: Reports: Abdominal Pain. Denies: Constipation, Diarrhea, Difficulty Swallowing, Nausea, Vomiting - Patient Data Vitals - Most Recent: Last Vital Signs Temp 97.7 F 12/26/17 07:39 Pulse 91 12/26/17 07:39 Resp 16 12/26/17 07:39 BP 147/78 H 12/26/17 07:39 Pulse Ox 95 12/26/17 07:39 Weight - Most Recent: 220 lb 14.416 oz I&O - Last 24 Hours: Intake & Output 12/25/17 12/26/17 12/26/17 22:59 06:59 14:59 Intake Total 756 1217 450 Output Total 450 1000 675 Balance 306 217 -225 Lab Results Last 24 Hours: Laboratory Results - last 24 hr 12/26/17 12/26/17 Range/Units 04:00 04:00 WBC 11.6 H (4.5-11.0) K/uL RBC 4.17 L (4.30-5.90) M/uL Hgb 11.4 L (12.0-15.0) g/dL Hct 34.3 L (40.0-54.0) % MCV 82 (80-98) fL MCH 27 (27-31) pg MCHC 33 (32-36) % Plt Count 377 (150-400) K/uL Neut % (Auto) 68 H (36-66) % Lymph % (Auto) 13 L (24-44) % Early % (Auto) 14 H (2-6) % Eos % (Auto) 4 (2-4) % Baso % (Auto) 1 (0-1) % Sodium 140 (140-148) mmol/L Potassium 3.6 (3.6-5.2) mmol/L Chloride 105 (100-108) mmol/L Carbon Dioxide 24 (21-32) mmol/L Anion Gap 11.3 (5.0-14.0) mmol/L BUN 7 (7-18) mg/dL Creatinine 1.3 (0.8-1.3) mg/dL Est Cr Clr Drug Dosing 71.15 mL/min Estimated GFR (MDRD) 59 L (>60) Glucose 109 H (74-106) mg/dL Calcium 7.7 L (8.5-10.1) mg/dL Magnesium 3.0 H (1.8-2.4) mg/dL Total Bilirubin 0.8 (0.2-1.0) mg/dL AST 28 (15-37) U/L ALT 33 (12-78) U/L Alkaline Phosphatase 134 H (46-116) U/L Total Protein 5.8 L (6.4-8.2) g/dL Albumin 2.0 L (3.4-5.0) g/dL Globulin 3.8 H (2.3-3.5) g/dL Albumin/Globulin Ratio 0.5 L (1.2-2.2) Tolu Results Last 24 Hours: Microbiology 12/24/17 04:20 Aerobic Blood Culture - Preliminary Blood - Arm, Right NO GROWTH AFTER 2 DAYS Anaerobic Blood Culture - Preliminary NO GROWTH AFTER 2 DAYS 12/24/17 04:10 Aerobic Blood Culture - Preliminary Blood - Arm, Right NO GROWTH AFTER 2 DAYS Anaerobic Blood Culture - Preliminary NO GROWTH AFTER 2 DAYS 12/23/17 16:30 Aerobic Blood Culture - Preliminary Blood - Arm, Right NO GROWTH AFTER 2 DAYS Anaerobic Blood Culture - Preliminary NO GROWTH AFTER 2 DAYS 12/23/17 16:25 Aerobic Blood Culture - Preliminary Blood - Arm, Right NO GROWTH AFTER 2 DAYS Anaerobic Blood Culture - Preliminary NO GROWTH AFTER 2 DAYS Med Orders - Current: Current Medications Acetaminophen (Tylenol Extra Strength) 1,000 mg PO Q6H PRN PRN Reason: Fever Last Admin: 12/24/17 18:16 Dose: 1,000 mg Albuterol (Proventil Neb Soln) 2.5 mg NEB Q4H PRN PRN Reason: Dyspnea Albuterol/Ipratropium (Duoneb 3.0-0.5 Mg/3 Ml) 3 ml NEB QIDRT SHAYY Last Admin: 12/26/17 07:17 Dose: 3 ml Benzonatate (Tessalon Perles) 100 mg PO TID PRN PRN Reason: Cough Last Admin: 12/25/17 23:16 Dose: 100 mg Diphenhydramine HCl (Benadryl) 25 - 50 mg IVPUSH Q4H PRN PRN Reason: ITCHING Gabapentin (Neurontin) 300 mg PO TID [facility] Last Admin: 12/26/17 08:09 Dose: Not Given Guaifenesin/Codeine Phosphate (Robitussin Ac) 10 ml PO Q4H PRN PRN Reason: Cough Last Admin: 12/25/17 21:29 Dose: 10 ml Heparin Sodium (Porcine) (Heparin Sodium) 5,000 units SUBCUT Q12H [facility] Last Admin: 12/26/17 04:24 Dose: 5,000 units Hydroxyzine HCl (Vistaril) 75 - 100 mg IM Q4H PRN PRN Reason: pain Last Admin: 12/21/17 08:06 Dose: 100 mg Magnesium Sulfate 2 gm/ Premix 50 mls @ 25 mls/hr IV Q6H [facility] Last Admin: 12/26/17 08:08 Dose: 25 mls/hr Multivitamins/Minerals 10 ml/Thiamine HCl 100 mg/ Chromium/Copper/Manganese/ Seleni/Zn 1 ml/ Lactated Ringer's 1,012 mls @ 125 mls/hr IV DAILY@1600 [facility] Last Admin: 12/25/17 16:32 Dose: 125 mls/hr Ketorolac Tromethamine (Toradol) 30 mg IVPUSH Q6H PRN PRN Reason: Pain/Fever Stop: 12/28/17 15:42 Last Admin: 12/25/17 12:00 Dose: 30 mg Levofloxacin (Levaquin) 750 mg PO Q24H [facility] Metoclopramide HCl (Reglan) 10 mg IVPUSH Q6H PRN PRN Reason: NAUSEA NOT CONTROL BY ZOFRAN Naloxone HCl (Narcan) 0.1 mg IV ASDIRECTED PRN PRN Reason: decreased respiratory rate Nystatin (Mycostatin) 5 ml PO QID [facility] Last Admin: 12/26/17 07:29 Dose: 5 ml Ondansetron HCl (Zofran) 4 mg IVPUSH Q4H PRN PRN Reason: Nausea/Vomiting Oxycodone HCl (Oxycodone) 0 mg PO Q4H PRN PRN Reason: Pain Pantoprazole Sodium (Protonix Granules) 40 mg PO Q24H SHAY[facility] Last Admin: 12/25/17 10:49 Dose: 40 mg Sodium Chloride ([place] Nasal Silver [place]ume) 0 ml LOGAN Q2H PRN PRN Reason: Nasal Dryness Last Admin: 12/23/17 18:12 Dose: 44 ml Discontinued Medications Acetaminophen (Tylenol) 650 mg PO Q6H SHAY[facility] Last Admin: 12/21/17 11:31 Dose: Not Given Acetaminophen (Tylenol Jr. Meltaways) 640 mg PO Q6H SH[facility] Last Admin: 12/24/17 12:11 Dose: 640 mg Cyanocobalamin (Vitamin B12) 1,000 mcg IM ONETIME ONE Stop: 12/23/17 09:01 Last Admin: 12/23/17 10:16 Dose: 1,000 mcg Dexamethasone (Dexamethasone) 4 mg .ROUTE .STK-MED ONE Stop: 12/21/17 04:01 Fentanyl (Sublimaze) Confirm Administered Dose 250 mcg .ROUTE .STK-MED ONE Stop: 12/21/17 05:38 Fentanyl Citrate (Fentanyl) Confirm Administered Dose 500 mcg .ROUTE .STK-MED ONE Stop: 12/21/17 02:23 Furosemide (Lasix) 20 mg IVPUSH ONETIME ONE Stop: 12/22/17 08:01 Last Admin: 12/22/17 08:17 Dose: 20 mg Furosemide (Lasix) 20 mg IVPUSH ONETIME ONE Stop: 12/23/17 10:46 Last Admin: 12/23/17 11:12 Dose: 20 mg Glycopyrrolate (Robinul) 0.6 mg .ROUTE .STK-MED ONE Stop: 12/21/17 04:01 Hydromorphone HCl (Dilaudid Special [employer] Officer 15 Mg In Ns 30 Ml) 15 mg IV ASDIRECTED SHAYY; Protocol Last Admin: 12/21/17 02:53 Dose: 15 mg Hydromorphone HCl (Dilaudid Special Loan Officer 15 Mg In Ns 30 Ml) 0 mg IV ASDIRECTED PRN; Protocol PRN Reason: [employer]ER PAIN CONTROL Potassium Chloride 20 meq/ (Premix) 100 mls @ 50 mls/hr IV ONETIME ONE Stop: 12/21/17 03:49 Last Admin: 12/21/17 02:26 Dose: 50 mls/hr Potassium Chloride/Sodium Chloride (Normal Saline With 20 Meq Kcl) 1,000 mls @ 125 mls/hr IV ASDIRECTED SHAYY Dextrose/Lactated Ringer's (Dextrose 5%-Lactated Ringers) 1,000 mls @ 125 mls/ hr IV ASDIRECTED [facility] Last Infusion: 12/21/17 12:08 Dose: Infused Sodium Chloride (Normal Saline) Confirm Administered Dose 10 mls @ as directed .ROUTE .STK-MED ONE Stop: 12/21/17 05:35 Lactated Ringer's (Ringers, Lactated) Confirm Administered Dose 1,000 mls @ as directed .ROUTE .K-MED ONE Stop: 12/21/17 06:03 Dextrose/Lactated Ringer's (Dextrose 5%-Lactated Ringers) 1,000 mls @ 175 mls/ hr IV ASDIRECTED [facility] Last Admin: 12/22/17 01:32 Dose: 175 mls/hr Multivitamins/Minerals 10 ml/Thiamine HCl 100 mg/ Chromium/Copper/Manganese/ Seleni/Zn 1 ml/ Dextrose/Lactated Ringer's 1,012 mls @ 174.826 mls/hr IV DAILY@ 1600 [facility] Last Admin: 12/21/17 17:35 Dose: 174.826 mls/hr Cefoxitin Sodium 2 gm/ Sodium (Chloride) 50 mls @ 100 mls/hr IV Q6H [facility] Last Admin: 12/22/17 14:24 Dose: 100 mls/hr Lactated Ringer's (Ringers, Lactated) 500 mls @ 500 mls/hr IV BOLUS [facility] Last Admin: 12/21/17 17:35 Dose: 500 mls/hr Lactated Ringer's (Ringers, Lactated) 500 mls @ 500 mls/hr IV STAT SHAYY Lactated Ringer's (Ringers, Lactated) 500 mls @ 500 mls/hr IV ONETIME ONE Stop: 12/22/17 00:29 Last Admin: 12/21/17 23:54 Dose: 500 mls/hr Lactated Ringer's (Ringers, Lactated) 500 mls @ 500 mls/hr IV ONETIME ONE Stop: 12/22/17 07:29 Last Admin: 12/22/17 06:35 Dose: 500 mls/hr Dextrose/Lactated Ringer's (Dextrose 5%-Lactated Ringers) 1,000 mls @ 100 mls/ hr IV ASDIRECTED [facility] Last Admin: 12/23/17 04:25 Dose: 100 mls/hr Multivitamins/Minerals 10 ml/Thiamine HCl 100 mg/ Chromium/Copper/Manganese/ Seleni/Zn 1 ml/ Dextrose/Lactated Ringer's 1,012 mls @ 100 mls/hr IV DAILY@ 1600 [facility] Last Admin: 12/22/17 16:39 Dose: 100 mls/hr Piperacillin Sod/Tazobactam (Sod 3.375 gm/ Sodium Chloride) 50 mls @ 100 mls/ hr IV Q6H [facility] Last Admin: 12/23/17 04:16 Dose: 100 mls/hr Potassium Chloride 20 meq/Lidocaine HCl 2 ml/ Sodium Chloride 112 mls @ 50 mls/ hr IV Q2H [facility] Stop: 12/22/17 20:59 Last Admin: 12/22/17 20:30 Dose: 50 mls/hr Acetaminophen 1,000 mg/ Premix 100 mls @ 400 mls/hr IV NOW ONE Stop: 12/22/17 17:00 Last Admin: 12/22/17 17:15 Dose: 400 mls/hr Lidocaine HCl (Xylocaine-Mpf 1%) Confirm Administered Dose 2 mls @ as directed .ROUTE .STK-MED ONE Stop: 12/22/17 17:10 Last Admin: 12/22/17 17:32 Dose: Not Given Potassium Chloride (Kcl 20 Meq In Water 100 Ml) Confirm Administered Dose 100 mls @ as directed .ROUTE .STK-MED ONE Stop: 12/22/17 17:11 Last Admin: 12/22/17 17:32 Dose: Not Given Potassium Chloride (Kcl 20 Meq In Water 100 Ml) Confirm Administered Dose 100 mls @ as directed .ROUTE .STK-MED ONE Stop: 12/22/17 19:51 Last Admin: 12/22/17 20:31 Dose: Not Given Piperacillin/Tazobactam/ (Dextrose 3.375 gm/ Premix) 50 mls @ 100 mls/hr IV Q6HR [facility] Last Admin: 12/26/17 04:29 Dose: 100 mls/hr Sodium Chloride (Normal Saline) 85 mls @ 3.5 mls/sec IV ASDIRECTED [facility] Stop: 12/23/17 08:00 Potassium Chloride 20 meq/Lidocaine HCl 2 ml/ Sodium Chloride 112 mls @ 56 mls/ hr IV Q2H [facility] Stop: 12/23/17 15:59 Last Admin: 12/23/17 14:42 Dose: 56 mls/hr Lactated Ringer's (Ringers, Lactated) 1,000 mls @ 125 mls/hr IV ASDIRECTED [facility] Last Admin: 12/25/17 11:14 Dose: 125 mls/hr Acetaminophen 1,000 mg/ Premix 100 mls @ 400 mls/hr IV NOW ONE Stop: 12/23/17 18:14 Last Admin: 12/23/17 17:32 Dose: 400 mls/hr Potassium Phosphate 25 mmole/ (Sodium Chloride) 258.3333 mls @ 65 mls/hr IV Q4H [facility] Stop: 12/25/17 00:29 Last Admin: 12/24/17 22:28 Dose: 65 mls/hr Lidocaine HCl (Xylocaine-Mpf 1%) Confirm Administered Dose 2 mls @ as directed .ROUTE .STK-MED ONE Stop: 12/24/17 17:09 Levofloxacin/Dextrose 750 mg/ (Premix) 150 mls @ 100 mls/hr IV Q24H [facility] Last Admin: 12/25/17 10:14 Dose: 100 mls/hr Iohexol (Omnipaque-300) 50 ml PO ASDIRECTED PRN PRN Reason: RADIOLOGY EXAM Last Admin: 12/22/17 04:31 Dose: 50 ml Iohexol (Omnipaque) 10 ml PO ONETIME ONE Stop: 12/23/17 08:01 Last Admin: 12/23/17 07:56 Dose: 10 ml Iopamidol (Isovue-300 (61%)) 140 ml IV . DIRECTED PRN PRN Reason: RADIOLOGY EXAM Stop: 12/23/17 08:00 Last Admin: 12/23/17 08:06 Dose: 140 ml Labetalol HCl (Normodyne) 5 - 15 mg IVPUSH Q1H PRN PRN Reason: SBP over 160 OR DBP over 95 Lidocaine HCl (Xylocaine-Mpf 1%) 2 ml INJECT ONETIME ONE Stop: 12/21/17 02:08 Last Admin: 12/21/17 02:26 Dose: 2 ml Meropenem (Merrem) Confirm Administered Dose 500 mg .ROUTE .STK-MED ONE Stop: 12/21/17 05:35 Miscellaneous Information (Remove Patch) 1 ea TRDERM ONETIME ONE Stop: 12/23/17 10:01 Last Admin: 12/23/17 10:16 Dose: Not Given Neostigmine Methylsulfate (Neostigmine) 3 mg .ROUTE .STK-MED ONE Stop: 12/21/17 04:01 Scopolamine Patch (Check) 1 each TOP DAILY [facility] Stop: 12/23/17 09:01 Last Admin: 12/23/17 08:58 Dose: Not Given Ondansetron HCl (Zofran) 4 mg .ROUTE .STK-MED ONE Stop: 12/21/17 04:01 Pantoprazole Sodium (Protonix Iv) 40 mg IVPUSH Q24H [facility] Last Admin: 12/21/17 11:33 Dose: 40 mg Propofol (Diprivan 20 Ml) 200 mg .ROUTE .STK-MED ONE Stop: 12/21/17 04:01 Rocuronium Manteno (Zemuron) 40 mg .ROUTE .STK-MED ONE Stop: 12/21/17 04:01 Scopolamine (Transderm-Scop) 1.5 mg TOP Q72H [facility] Stop: 12/23/17 12:31 Last Admin: 12/21/17 13:24 Dose: 1.5 mg Sodium Chloride (Saline Flush) 10 ml FLUSH ONETIME PRN PRN Reason: per radiology protocol Stop: 12/23/17 08:00 Last Admin: 12/23/17 08:06 Dose: 10 ml Succinylcholine Chloride (Quelicin) 100 mg .ROUTE .STK-MED ONE Stop: 12/21/17 04:01 Tamsulosin HCl (Flomax) 0.4 mg PO ONETIME ONE Stop: 12/23/17 10:01 Last Admin: 12/23/17 10:15 Dose: 0.4 mg - Exam General: Alert, Oriented, Cooperative, No Acute Distress Lungs: Clear to Auscultation, Normal Respiratory Effort Cardiovascular: Regular Rate, Regular Rhythm, No Murmurs GI/Abdominal Exam: Soft, Non-Tender, No Organomegaly, No Distention Extremities: Non-Tender, No Pedal Edema Skin: Warm, Dry Consult PN Assessment/Plan Procedures: Procedures ASSAY OF LACTIC ACID (11/24/17) BLOOD TYPING SEROLOGIC ABO (07/26/17) BLOOD TYPING SEROLOGIC RH(D) (07/26/17) COMPLETE CBC AUTOMATED (11/24/17) CT ABD & PELV W/CONTRAST (11/24/17) EGD DILATE STRICTURE (12/15/17) EMERGENCY DEPT VISIT (11/24/17) HYDRATE IV INFUSION ADD-ON (11/24/17) METABOLIC PANEL TOTAL CA (11/24/17) RBC ANTIBODY SCREEN (07/26/17) ROUTINE VENIPUNCTURE (11/24/17) THER/PROPH/DIAG INJ IV PUSH (11/24/17) Problem List Initiated/Reviewed/Updated: Yes My Orders Last 24 Hours: My Active Orders 12/25/17 13:54 Albuterol [Proventil Neb Soln] 2.5 mg NEB Q4H PRN Benzonatate [Tessalon Perles] 100 mg PO TID PRN Codeine/guaiFENesin [Robitussin AC] 10 ml PO Q4H PRN oxyCODONE See Dose Instructions PO Q4H PRN 12/25/17 13:55 RT Aerosol Therapy [RC] ASDIRECTED 12/25/17 13:56 Convert IV to Saline Lock [OM.PC] Routine 12/25/17 15:00 Albuterol/Ipratropium [DuoNeb 3.0-0.5 MG/3 ML] 3 ml NEB QIDRT 12/26/17 10:45 Levofloxacin [Levaquin] 750 mg PO Q24H Plan: Right lung pneumonia- identified on chest x-ray, likely cause of recent fevers as well as recently developed cough and shortness of breath. -Blood cultures pending -Nebulizer therapy as needed -Robitussin-AC and Tessalon Perles as needed for cough -Discontinue IV antibiotic therapy -Levofloxacin 750 mg by mouth daily, plan for an additional 3 days of therapy after discharge Status post exploratory laparotomy -Postoperative care per Dr. Lopez Right ureteral calculus-pain has resolved, likely that the stone has passed
[2017-12-26] MEDS: Pantoprazole 40 MG Delayed-Release Granules 1 Packet PO SCH (10:54)
[2017-12-26] MEDS: Levofloxacin/Dextrose 5%-Water 750 MG in Premix Bag 1 BAG IV SCH (10:55)
--- NOTE | 2017-12-26 11:26 | PN ---
DATE OF SERVICE: 12/26/2017 SUBJECTIVE: Zak reports that his pain is controlled. Temp max of 99.8. Oral intake 600. PARISH drains have put out 10 and 5 mL, respectively. Urine output 2650. He was started on Levaquin for postop pneumonia. OBJECTIVE: GENERAL: Zak Ritchie is a 47-year-old male. Alert and orientated. He is sitting up in the chair in his hospital room. SKIN: Warm and dry. Color pale. VITAL SIGNS: TPR is 97.7, 91, 16, and blood pressure 147/78. HEENT: Negative. NECK: Supple. HEART: Regular rate and rhythm. LUNGS: Clear. ABDOMEN: Dressings dry and intact. Abdominal binder is on. EXTREMITIES: Without peripheral edema. ASSESSMENT: 1. Diagnostic laparoscopy, gastrorrhaphy, drainage of shady-anastomotic fluid for perforation and fluid in abdomen. 2. Pneumonia. PLAN: 1. Discharge per Dr. Nieves. 2. Good pulmonary toilet. 3. We will evaluate p.r.n. or in a.m. Reny Petersen PA-C /[id number]
[2017-12-26] MEDS: Levofloxacin 250 MG Tab PO SCH (11:46)
[2017-12-26] MEDS: MVI, Adult with Vitamin K 10 ML, Thiamine 100 MG, Chromium/Copper/Mang/Selen/Zn 1 ML in... IV SCH ×4 (16:38)
[2017-12-27] MEDS: Magnesium Sulfate/Water 2 GM in Premix Bag 1 BAG IV SCH ×2 (02:07→07:18)
[2017-12-27] MEDS: Heparin Sodium 5,000 Units/ML Vial SUBCUT SCH (04:12)
[2017-12-27] MEDS: Nystatin Susp 100,000 Unit/ML 5 ML UD Cup PO SCH ×2 (07:17→09:08)
[2017-12-27] MEDS: Albuterol/Ipratropium 3.0-0.5 MG/3 ML Neb Soln NEB SCH ×2 (07:24→10:57)
--- NOTE | 2017-12-27 08:17 | OR ---
DATE OF PROCEDURE: 12/21/2017 PREOPERATIVE DIAGNOSIS: Probable recent perforation of gastrojejunostomy status post gastrojejunostomy dilation. POSTOPERATIVE DIAGNOSES: 1. Probable recent perforation of gastrojejunostomy status post gastrojejunostomy dilation. 2. Lani-anastomotic inflammatory fluid collection. OPERATIVE PROCEDURES: 1. Diagnostic laparoscopy with;. a. Gastrorrhaphy (46183). b. Drainage of lani-anastomotic inflammatory fluid collection (91961). 2. Intraoperative upper GI endoscopy (48216). ANESTHESIA: General. INDICATION FOR PROCEDURE: The patient is one week status post an upper GI endoscopy with dilation of gastrojejunostomy. He has had some continued discomfort since the procedure. The patient was seen yesterday in the [facility] emergency room, where a CT scan was obtained, which showed moderate amount of free air. The patient, by definition, most likely has had a perforation of the gastrojejunostomy. The plan is to proceed with a diagnostic laparoscopy, laparotomy if necessary, and repair of any likely perforation sites as well as drainage of lani-anastomotic fluid or other abscesses. Potential risks including bleeding, infection, injury to underlying viscera, problems with the infection persisting or recurring were all reviewed along with the remote possibility of cardiopulmonary, septic, or hemorrhagic complications leading to , and the patient wishes to proceed. DETAILS OF PROCEDURE: The patient was taken to the operating room and placed in a supine position. After general endotracheal anesthesia was induced, the abdomen was prepped and draped. The previously used transverse incision in the left mid-abdomen was then used for the camera port, and this was entered under direct vision with an Optiview trocar and inflated to 15 mmHg pressure with CO2. Laparoscope was then reinserted. No underlying trocar insertion site injuries were seen. Following this, additionally, three 5 mm trocars were placed. Initial dissection showed some filmy adhesions, which were taken down with Harmonic scalpel. As one approached the area of the gastrojejunostomy, there was a slightly cloudy inflammatory fluid collection. The peritoneum along this was markedly reddened. There was also a reddened spot on the right anterolateral aspect of the gastrojejunostomy. This, I suspect, likely was the site of the perforation. At that point, the inflammatory fluid collection was evacuated and cultures sent. A gastrorrhaphy at the right anterolateral aspect of the gastrojejunostomy was then accomplished with a [id number] stitch of 3-0 Vicryl stitch. One additional stitch was then placed anterior and then one posterior to that suture as well. At that point, the upper GI endoscope was passed orally and into the gastric pouch with the Nacho limb being occluded. The area was inflated under a fair degree of tension with air while it was submerged within antibiotic-containing saline solution. No leaks were present at this point, and the gastroscope was then removed. The anastomosis was then reinforced with fibrin sealant circumferentially. Two Boston-Diaz drains were placed through the 5 mm trocar sites adjacent to the gastrojejunostomy and one of these up into the area of the splenic fossa. At that point, no further problems were noted. The trocars were removed. The peritoneal cavity was deflated. The incision was closed with some 4-0 Vicryl skin stitch. The patient was taken to the recovery room in a satisfactory condition. Javier Lopez MD /[id number]
[2017-12-27] MEDS: Gabapentin 250 MG/5 ML Solution ML 470 ML Bottle PO SCH (09:08)
[2017-12-27] MEDS: Levofloxacin 250 MG Tab PO SCH (11:37)
--- NOTE | 2017-12-27 11:56 | DISCH ---
ADMISSION DIAGNOSES: Free intraperitoneal air, hypokalemia, status post Nacho-en-Y gastric bypass surgery, unspecified surgical malabsorption, B12 deficiency, obesity, obstructive sleep apnea, essential hypertension, and impaired glucose tolerance. DISCHARGE DIAGNOSES: 1. Diagnostic laparoscopy, gastrorrhaphy, drainage of shady-anastomotic fluid for perforation and fluid in the abdomen. Surgeon, Javier Lopez MD. Date of surgery, 12/21/2017. 2. Pneumonia, right lung. HISTORY: Zak Ritchie presented to the emergency room with a low-grade fever, potassium of 3.1, and right-sided abdominal pain. After preoperative evaluation and discussion of possible risks and possible complications, he wished to proceed with surgical procedure. HOSPITAL COURSE: He had no operative complications. Within a couple of days, he did develop a fever and was diagnosed with right pneumonia. IV antibiotics were used with Robitussin with codeine and Tessalon for cough. His activity has been good. Oral intake was adequate. Pain has been controlled. He was able to be discharged to home on 12/27/2017. PHYSICAL EXAMINATION: GENERAL: Zak Ritchie is a 47-year-old male. VITAL SIGNS: Height is 5 feet 10 inches. Weight is 220 pounds. TPR is 98.1, 86, 24, and blood pressure 128/74. HEENT: Negative. NECK: Supple. HEART: Regular rate and rhythm. LUNGS: Clear. ABDOMEN: Laparoscopic incisions look good. Sutures in place. EXTREMITIES: Without peripheral edema. DISPOSITION: Discharged to home. CONDITION: Stable and improving. FOLLOWUP: With Javier Lopez MD, on 01/02/2018 at 11 a.m. Chest x-ray, PA and lateral before appointment at 10:30 a.m. DISCHARGE MEDICATIONS: Home Medications; 1. Tylenol Extra Strength 1000 mg q.6 hours p.r.n. pain. 2. Robitussin Ac 10 mL q.4 hours p.r.n. cough, 4 ounces. 3. Levaquin 750 mg oral every 24 hours for 10 days. 4. Oxycodone 5 mg q.4 hours p.r.n. pain, #30. He is to resume; 1. B12, sublingual, 1000 mcg daily. 2. Hyoscyamine 0.125 mg sublingual every 4 hours. 3. Zofran ODT 4 mg q.4 hours. DISCHARGE DIET: Step-2 gastric bypass diet without cereal until next appointment. ACTIVITY: No lifting greater than 10 pounds for 2 weeks. Other activity, walk 6 times daily, distance and time as tolerated. Driving after discharge, do not drive while on pain medication. Shower/bathing, may shower. DISCHARGE INSTRUCTIONS: Notify provider if any fever, increased pain, nausea, or vomiting. Keep site clean and dry. Wear abdominal binder for 2 weeks and then as tolerated. Special instruction, use incentive spirometer 10 times every hour while awake for 1 week.
== END 2017-12-27 11:57 | disposition home or self-care (01) | DRG 791 ==
LOC: JP.ED 01:09 → JP.ICU 02:05 → JP.MS 12-24 11:18
PROVIDERS: ADMIT Surgery; ATTEND Surgery
PROC: 0DQ64ZZ Repair Stomach, Percutaneous Endoscopic Approach (ICD-10-PCS; principal; 2017-12-21)
PROC: 0W9G4ZZ Drainage of Peritoneal Cavity, Percutaneous Endoscopic Approach (ICD-10-PCS; principal; 2017-12-21)
DX: K91.71 Accidental puncture and laceration of a digestive system organ or structure during a digestive system procedure (principal); J18.9 Pneumonia, unspecified organism; R16.0 Hepatomegaly, not elsewhere classified; N13.30 Unspecified hydronephrosis; N20.1 Calculus of ureter; K90.9 Intestinal malabsorption, unspecified; E53.8 Deficiency of other specified B group vitamins; E87.70 Fluid overload, unspecified; Y83.8 Other surgical procedures as the cause of abnormal reaction of the patient, or of later complication, without mention of misadventure at the time of the procedure; E74.39 Other disorders of intestinal carbohydrate absorption; E87.6 Hypokalemia; I10 Essential (primary) hypertension; K21.9 Gastro-esophageal reflux disease without esophagitis; E66.9 Obesity, unspecified; Z68.30 Body mass index [BMI] 30.0-30.9, adult; Z90.49 Acquired absence of other specified parts of digestive tract; Z98.84 Bariatric surgery status; Z79.899 Other long term (current) drug therapy
CPT/HCPCS: 36415; 71046; 71046-26; 74177; 74240; 74240-26; 80053; 81001; 83605; 83735; 83880; 84100; 85025; 85027; 87040; 87070; 87075; 87205; 94640; 94762; 99285; A9270-GY; C9113; J0131; J0330; J0694; J1100; J1170; J1644; J1885; J1940; J1956; J2001; J2185; J2405; J2543; J2704; J2710; J3010; J3410; J3411; J3420; J3475; J3480; J3490; J7030; J7042; J7050; J7120; J7620; Q9965; Q9967